=== PATIENT | female | born 1960 | race Caucasian/White ===

== ENCOUNTER → 2018-01-21 16:22 | Outpatient (CLI) | payer BC, SELFPAY ==
[2018-01-21 19:08] LABS: Vitamin D,25 Hydroxy 29.8 ng/mL (29.95-100.01)
== END ==
PROVIDERS: Family Provider Family Medicine; PCP Family Medicine; Visit Provider Family Medicine
DX: E55.9 Vitamin D deficiency, unspecified (principal)
CPT/HCPCS: 36415; 82306

== ENCOUNTER → 2019-03-18 11:07 | Outpatient (CLI) | payer BC, SELFPAY ==
[2015-02-23 14:24] VITALS: BMI 26.3
[2019-03-18 13:45] LABS: Vitamin D,25 Hydroxy 34.1 ng/mL (29.95-100.01)
== END ==
PROVIDERS: Family Provider Family Medicine; PCP Family Medicine; Referring Provider Family Medicine; Visit Provider Family Medicine
DX: E55.9 Vitamin D deficiency, unspecified (principal)
CPT/HCPCS: 36415; 82306

== ENCOUNTER → 2019-09-11 10:15 | Outpatient (CLI) | payer BC, SELFPAY ==
[2015-02-23 14:24] VITALS: BMI 26.3
--- NOTE | 2019-09-11 10:19 | RAD_ITS ---
STUDY: X-RAY - PELVIS AND RIGHT HIP REASON FOR EXAM: Female, 59 years old. Pain TECHNIQUE: 3 views of the pelvis and hip. COMPARISON: None. FINDINGS: There is a non-specific bowel gas pattern. Evidence of bilateral tubal ligation. Normal bilateral iliac wings, sacroiliac joints and visualized sacrum. Normal bilateral superior and inferior pubic rami. There are degenerative changes of the pubic symphysis with articular narrowing and sclerosis. Normal bilateral ischial tuberosities. Normal visualized femoral head. Normal acetabulum. There is mild articular joint space narrowing of the hip. RAD/Hip Min 2 Views (Portable) IMPRESSION: Mild degenerative changes of the hip joint. Electronically Signed: Lamont Bertrand, at 10:56 EDT , Service support ,
--- NOTE | 2019-09-11 10:20 | RAD_ITS ---
STUDY: X-RAY - RIGHT KNEE REASON FOR EXAM: Female, 59 years old. Pain TECHNIQUE: 4 view(s) of the knee. COMPARISON: None. FINDINGS: Normal visualized distal femur. Normal visualized proximal tibia and fibula. Normal proximal tibiofibular articulation. Normal medial femorotibial compartment. Normal lateral femorotibial compartment. Normal patellofemoral articulation. The soft tissue structures are unremarkable. RAD/Knee 4 or More Views IMPRESSION: Normal x-ray examination of the knee. Electronically Signed: Lamont Bertrand, at 10:53 EDT , Service support ,
== END ==
PROVIDERS: PCP Family Medicine; Referring Provider Family Medicine; Visit Provider Family Medicine
DX: M25.551 Pain in right hip (principal); M25.569 Pain in unspecified knee
CPT/HCPCS: 73502; 73564

== ENCOUNTER → 2021-02-09 08:29 | Outpatient (CLI) | payer BC, SELFPAY | PROVIDERS: PCP Family Medicine; Referring Provider Physician Assistant; Visit Provider Physician Assistant | DX: Z11.52 Encounter for screening for COVID-19 (principal) | CPT/HCPCS: 87635; U0005; U0003 ==

== ENCOUNTER 2022-04-17 15:57 | Outpatient (RCR) | payer BC, SELFPAY ==
--- NOTE | 2022-04-18 11:55 | HP.PTEVAL_ITS ---
Patient's Visit Information GIOVANNA BROOKS is a 62 year old F referred to Physical Therapy by Dr. Cely López MD with a diagnosis of R shoulder strain. Date of Evaluation: 04/17/22 Physical Therapist: Louis Salmon DPT - Visit Plan Frequency: 1x/Week Duration: 4 Weeks Plan: Start with DFM and DN to teres minor and infraspinatus. Add in ER strengthening to remodel her issue. Add in serratus anterior strengthening as well. I did talk to her about self pay DN as well. - Subjective Pt. is here today for her initial evaluation with diagnosis of R shoulder pain. Pt. reports having increased pain for ~1 month. She thinks that is started after lifting more with a new job, mostly lifting over head. She is now having pain near her scapulae, but also reports pain that does extend down into her R deltoid at times. She is able to sleep without issues. Pt. reports no pain at rest, but mostly with lifting over head and reaching out in front/side of her. Pt. denies N/T in either UE. Pt. reports no neck pain. NO xrays or other imaging at this point in time. She had not tried any exercises at this point in time. She reports being very active with her life style. Pt. is sleeping okay without issues. Pt. is hopeful to reduce symptoms in order to get back to all work activities and recreational activities without limitations. - Pain R shoulder Pain Intensity (Out of 10): 2 Pain Intensity Range: 1, 5 R scapulae Pain Intensity (Out of 10): 2 Pain Intensity Range: 1, 5 - Objective POSTURE: Pt. has fairly normal posture in sitting and standing. Pt. has normal shoulder heights. Slight FH posture. [place] increase in R scapular winging compared to L side. PALPATION: pt. has marked tenderness at infraspinatus and teres minor muscle bellies. No pain along medial boarder of scapula, no pain at subacromial space or biceps tendon. NEURO: normal throughout BUEs. ROM: L shoulder: full ROM without increase in symptoms. R shoulder: flexion 165deg mild increase NW, abd 170deg mild increase NW, functional ER C6 NE, functional IR T10 NE. MMT: 5/5 throughout B shoulders without increase in symptoms. No pain with RTC testing. - Special Tests R Shoulder Lift Off Test - Subscapular Tear: Negative R Shoulder Drop Sign - IS Test: Negative R Shoulder Empty Can - SS: Negative R Shoulder Belly Press - SupScap: Negative R Shoulder Neer - Impingement: Negative R Shoulder [place] Steve - Impingement: Negative R Shoulder Biceps Load Test - Labrum: Negative R Shoulder Yeargasons - SLAP: Negative - Balance/Special Test Scores Quick DASH Score: 29.5450 - Goals Goal 1:: LTG: Pt. to be I with HEP. Goal Time Frame: 4-6 Weeks Goal 2:: STG: Pt. to have full ROM of R shoulder without increase in symptoms. Goal Time Frame: 2-4 Weeks Goal 3:: LTG: Pt. to complete all work related activities without increase in symptoms of R shoulder. Goal Time Frame: 4-6 Weeks Goal 4:: STG: Pt. to have no tenderness to firm palpation of R shoulder external rotators. Goal Time Frame: 2-4 Weeks - Rehabilitation Potential Physical Therapy Diagnosis: Pt. has signs and symptoms consistent with R shoulder strain. Pt. has pain at her teres minor and infraspinatus region. She has some mild R scapular winging as well. It appears to be a strain of her external rotators rather than a tear. Pt. would benefit from PT to address her pain with over head movement and with what appears to be a teres minor/infraspinatus muscle tendinitis. Rehabilitation Potential: Excellent - Anticipated Interventions Patient/Client Instruction: Educate patient on: Condition, Plan of Care, Risk Factors For the Purpose of:: To foster healthy habits, To improve decision making, To facilitate caregiver knowledge, To improve self management, To prevent re- injury, To improve ability to perform tasks related to life management Therapeutic Exercise to Include: Strength training, Active ROM, Scapular Strength/Stabilization For the Purpose of:: To decrease pain, To increase ROM, To improve nutrient delivery to tissue, To increase oxygenation perfusion, To improve muscle performance and motor function Manual Therapy Techniques to Include: Mobilization, Functional dry needling For the Purpose of:: To decrease pain, To increase ROM, To improve nutrient delivery to tissue, To increase oxygenation perfusion, To improve muscle performance and motor function Thank you for the opportunity to evaluate your patient. For Medicare and Medicare HMO plans, please review the plan of care and approve it. It will need to be FAXED BACK to us at [phone] for Medicare purposes. For Medicare only, by signing this I certify the plan of care. Please let me know if there are questions or concerns regarding this plan of care. Physician Signature: ____Date:
== END 2022-04-17 19:00 | disposition home or self-care (01) ==
LOC: PT 15:57
PROVIDERS: PCP Family Medicine; Referring Provider Family Medicine; Visit Provider Family Medicine
DX: S46.911D Strain of unspecified muscle, fascia and tendon at shoulder and upper arm level, right arm, subsequent encounter (principal)
CPT/HCPCS: 97110; 97161

== ENCOUNTER → 2024-07-24 | Outpatient (CLI) | payer OTHER, SELFPAY ==
[2024-07-24 18:28] LABS: Anion Gap 14 (5-15); BUN 13 mg/dL (4-19); BUN/Creat Ratio 17.5 RATIO (10-20); Calcium,Total 9.4 mg/dL (7.6-11.0); Chloride 104 mmol/L (98-108); Cholesterol 225 mg/dL (<=200); Creatinine, Serum 0.72 mg/dL (0.70-1.20); EST Glomerular Filtration Rate 94 (>60); Glucose 88 mg/dL (70-99); High Density Lipoprotein 103 mg/dL; Low Density Lipoprotein Calc. 95 mg/dL; Potassium 3.8 mmol/L (3.3-5.1); Sodium Level 139 mmol/L (133-145); Triglycerides 136 mg/dL; Very Low Density Lipoprotein 27 mg/dL (5-40); cholesterol:hdl ratio screen 2.18
[2024-07-24 18:39] LABS: Vitamin D,25 Hydroxy 27.9 ng/mL (30-100)
== END | disposition home or self-care (01) ==
LOC: MFPLAB 16:41
PROVIDERS: PCP Family Medicine; Referring Provider Family Medicine; Visit Provider Family Medicine
DX: E55.9 Vitamin D deficiency, unspecified (principal); R03.0 Elevated blood-pressure reading, without diagnosis of hypertension
CPT/HCPCS: 36415; 80048; 80061; 82306

== ENCOUNTER → 2025-02-22 | Outpatient (CLI) | payer OTHER, SELFPAY ==
--- OUTSIDE RECORDS SUMMARY | 2025-02-22 15:40 | XMS RPT_ITS | CCD ---
Author Organization [facility] Care Team Providers Care 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 Name Role Phone IMCA Unavailable Unavailable Rene, Cely Unavailable Unavailable Cely López Primary Care Provider Cely López Primary Care Provider Cely López Referring Unavailable Cely López Attending Unavailable Cely López Primary Care Unavailable Dr. Cely López MD Primary Care Provider Rene BOO, Dr. Cely Alonso Attending Provider Dr. Cely López MD Referring Provider TAYLOR AVILES Primary Care Unavailable REBA GARCIA Attending Unavailable DOROTHY MUHAMMAD Referring Unavailable DOROTHY MUHAMMAD Attending Unavailable CELY LÓPEZ Primary Care Unavailable CELY LÓPEZ Primary Care Unavailable ROBERT HAYS Attending Unavailable DOROTHY MUHAMMAD Referring Unavailable CELY LÓPEZ Primary Care Unavailable Medications Current Medications Medication Drug Class(es) Dates Sig (Normalized) Sig (Original) amoxicillin 875 mg / clavulanate 125 mg oral tablet (2 sources) Penicillin-class Antibacterial Start: 10-13-2024 End: 10-20-2024 take 1 tablet by mouth twice daily amoxicillin-clav ulanate potassium (AUGMENTIN) 875-125 mg per tablet Take 1 tablet by mouth two times a day for 7 days. 14 tablet 10/13/2024 10/20/2024 Active Start: 09-28-2023 End: 10-05-2023 take 1 tablet by mouth twice daily amoxicillin-clavulanate potassium (AUGMENTIN) 875-125 mg per tablet Indications: Sinobronchitis Take 1 tablet by mouth two times a day for 7 days. 14 tablet 0 09/28/2023 10/05/2023 Active BEE POLLEN ORAL (12 sources) take 2 capsules by m outh once daily BEE POLLEN ORAL Take 2 capsules by mouth once daily. Active BEE POLLEN ORAL Take by mouth. 0 Active Comment on above: Take by mouth. calcium carbonate 1500 mg / cholecalciferol 0.01 mg oral tablet (2 sources) Vitamin D Start: 4 Calcium Carbonate-Vitamin D3 (Calcium 600 + D(3)) 1 EACH tablet Active 1 {tbl} PO DAILY May 14, 2013 1:00am cholecalciferol 0.025 mg oral capsule (9 sources) Vitamin D End: take 1 capsule by mouth once daily Cholecalciferol, Vitamin D3, (VITAMIN D) 1,000 unit cap Take 1,000 Units by mouth once daily. 01/02/2024 Discontinued Comment on above: Take 1,000 Units by mouth once daily. [place]-3 Fatty Acids-Fish Oil (2 sources) Start: 4 [place]-3 Fatty Acids-Fish Oil 1 EACH capsule Active 1 NMA PO DAILY May 14, 2013 1:00am Start: 05-14-2013 [place]-3 Fatty Acids-Fish Oil Active 1 EACH PO DAILY May 14, 2013 1:00am ergocalciferol, vitamin D2, (VITAMIN D2 PO) (1 source) ergocalciferol, vitamin D2, (VITAMIN D2 PO) Take by mouth. Active LORazepam 0.5 mg oral tablet (6 sources) Benzodiazepine Start: 023 LORazepam (ATIVAN) 0.5 mg TAKE 1 (ONE) TABLET DAILY IF NEEDED FOR ANXIETY 08/15/2022 Active Comment on above: TAKE 1 (ONE) TABLET DAILY IF NEEDED FOR ANXIETY losartan potassium 25 mg oral tablet (2 sources) Angiotensin 2 Receptor Annabel Start: 025 End: 025 take 1 tablet by mouth once daily losartan (COZAAR) 25 mg tablet Take 1 tablet by mouth once daily. 07/24/2024 01/01/2025 Discontinued Multivitamin With Folic Acid (Thera) 1 TABLET tablet (2 sources) Start: 014 take 1 tablet by mouth once daily Multivitamin With Folic Acid (Thera) 1 TABLET tablet Active 1 {tbl} PO DAILY May 14, 2013 1:00am Start: 05-14-2013 take 1 tablet by keshia th once daily Multivitamin With Folic Acid (Thera) 1 TABLET tablet Active 1 TABLET PO DAILY May 14, 2013 1:00am predniSONE 20 mg oral tablet (1 source) Start: 09-28-2023 End: 10-03-2023 take 2 tablets by mouth once daily predniSONE (DELTASONE) 20 mg tablet Indications: Sinobronchitis Take 2 tablets by mouth once daily for 5 days. 10 tablet 0 09/28/2023 10/03/2023 Active ACUCGLH-KUGU-SFCES-ORE G-CAPRYL ORAL (6 sources) take 1 capsule by mouth once daily JHFCOCU-BTNS-PQGNT-OREG-C [place]OU[place] ORAL Take 1 capsule by mouth once daily. Active CNUQUYM-CWLR-FEF XT-POWQ-DWNYWE ORAL Take by mouth. 0 Active Comment on above: Take by mouth. Completed/Discontinued Medications Medication Drug Class(es) Dates Sig (Normalized) Sig (Original) hydrOXYzine pamoate 25 mg oral capsule (7 sources) Antihistamine Start: 06-05-2021 End: 12-05-2022 take 1 capsule by mouth every eight hours as needed hydrOXYzine pamoate (VISTARIL) 25 mg capsule Take 1 capsule by mouth three times daily as needed for anxiety (or insomnia). 30 capsule 1 06/05/2021 12/05/2022 Discontinued (Other) Comment on above: Take 1 capsule by mo uth three times daily as needed for anxiety (or insomnia). Problems Active Problems Problem Classification Problem Date Documented Date Episodic/Chronic Bacterial infection; unspecified site (1 source) Other specified bacterial agents as the cause of diseases classified elsewhere; Translations: [Bacterial sinusitis] Onset: 01-21-2025 Episodic Nonmalignant breast conditions (12 sources) Fibrocystic changes of bilateral breasts; Translations: [Diffuse cystic mastopathy of right breast] Onset: 12-21-2016 12-21-2016 Chronic Nonmalignant breast conditions (20 sources) Pain of breast; Translations: [Mastodynia] Onset: 12-21-2016 12-21-2016 Episodic Nutritional deficiencies (1 source) Vitamin D deficiency, unspecified; Translations: [Vitamin D deficiency, unspecified] Onset: 07-30-2024 Chronic Other screening for suspected conditions (not mental disorders or infectious disease) (18 sources) Patient encounter status; Translations: [Encounter for screening mammogram for malignant neoplasm of breast] Onset: 12-21-2016 Episodic Other upper respiratory infections (3 sources) Chronic sinusitis; Translations: [Chronic sinusitis, unspecified] Onset: 01-21-2025 09-28-2023 Chronic Residual codes; unclassified (3 sources) Postmenopausal state; Translations: [Asymptomatic menopausal state] 01-02-2024 Episodic Residual codes; unclassified (1 source) Asymptomatic menopausal state; Translations: [Asymptomatic postmenopausal status] Onset: 01-01-2025 Episodic Substance-related disorders (12 sources) Tobacco user; Translations: [Nicotine dependence, unspecified, uncomplicated] 03-22-2010 Chronic Unclassified (3 sources) Patient encounter status 01-01-2025 Unclassified (1 source) Dense breasts; Translations: [Dense breasts] Onset: 12-21-2016 Unclassified (1 source) Dense breast tissue; Translations: [Dense breast tissue] Onset: 06-01-2024 Past or Other Problems Problem Classification Problem Date Documented Da te Episodic/Chronic Residual codes; unclassified (12 sources) Family history of breast cancer; Translations: [Family history of malignant neoplasm of breast] Onset: 12-21-2016 12-21-2016 Episodic Unclassified (1 source) Breast finding 01-01-2025 Results Test Name Value Interpretation Reference Range Facility [facility] 01-21-2025 CNOV Office Visit (WOUCA) HEATHER BROOKS Gavin ([id number]) 1960 F Date Time Provider Department 01/21/25 9:45 AM REBA GARCIA During your visit today, we recorded the following information about you: Temperature Pulse Respiration Blood pressure 97.3 degrees 88/minute 22/minute 133/82 Weight 69 kg Reba Garcia APRN.CNP 01/21/2025 10:11 AM Signed SUBJECTIVE: Heather Brooks is a 65 year old female. Who presents today with concerns for a sinus infection. She has had sinus pressure cough headache green mucus for the last 10 days. She has not had a fever. She has had sinus infections in the past. She has not been exposed to anyone who is sick. She is leaving in a couple of days to fly to [facility] for vacation PAST MEDICAL HISTORY Diagnosis Date Anxiety, generalized Per patient Dense breast Tobacco use disorder Age 34 FAMILY HISTORY Problem Relation Age of Onset Breast Cancer Mother 70 and 85 Stroke Mother Emphysema Father Colon Cancer Other none Diabetes Other none Coronary Artery Disease Other none SOCIAL HISTORY[1] ALLERGIES No Known Allergies Current Outpatient Medications Medication Sig Dispense Refill ergocalciferol, vitamin D2, (VITAMIN D2 PO) Take by mouth. LORazepam (ATIVAN) 0.5 mg TAKE 1 (ONE) TABLET DAILY IF NEEDED FOR ANXIETY JKIGCOU-UATE-YRVNI-O REG-CAPRYL ORAL Take 1 capsule by mouth once daily. BEE POLLEN ORAL Take 2 capsules by mouth once daily. No current facility-administere d medications for this visit. OBJECTIVE: BP 133/82 Pulse 88 Temp 36.3 ?C (97.3 ?F) Resp 22 Wt 69 kg (152 lb 1.9 oz) LMP 06/22/2015 (Within Days) SpO2 99% BMI 26.11 kg/m? ROS all other systems reviewed and are negative Physical Exam Constitutional: Well developed, well nourished, NAD, AANDO X3 ENT: Head is atraumatic, airway patent, mucosal membranes moist pink Cardiac: Heart tone normal rate and rhythm Respiratory: Respirations even and unlabored, Lung sounds clear : no CVA tenderness MS: no swelling, or deformity in upper or lower extremities, no midline tenderness in cervical, thoracic or lumbar spine. Neuro: strength sensation and coordination intact. CN II-XII grossly intact, Skin: warm and dry with out rash, lesion or ecchymosis on exposed skin Psych: alert appropriate, speech clear MDM It was a pleasure to take care of Heather Brooks today. Patient's symptoms have lingered for the last 10 days I will treat her today with an antibiotic. She has had Augmentin in the past when she has had her sinus infections and this has worked well for her. She may take Motrin and Tylenol for any discomfort. She currently uses Flonase and may continue this medication. She has also taken Sudafed and she may continue with this medication as well. She will increase her fluids for hydration. Patient has verbalized understanding of plan of care and is agreeable Patient will follow up with family physician. They may return to the Urgent Care or go to the ER for worsening symptoms or concerns. Patient verbalized understanding of plan of care and is in agreement. ASSESSMENT/PLAN: 1. Bacterial sinusitis - ICD9: 473.9, 041.9, ICD10: J32.9, B96.89 - AMOXICILLIN 875 MG-POTASSIUM CLAVULANATE 125 MG TABLET Reba Garcia APRN.SUPERVISOR TYPE DISK QUALITY CONTROL History and Record Review Systemic symptoms present included: Differential Diagnoses - Sinusitis is more likely for the following reason(s): suggested by HANDP - Pneumonia is less likely for the following reason(s): HANDP not suggestive Disposition The patient was discharged. OTC Medications were advised: [1] Social History Tobacco Use Smoking status: Every Day Current packs/day: 0.00 Average packs/day: 1 pack/day for 16.0 years (16.0 ttl pk-yrs) Types: Cigarettes Start date: 03/15/1996 Last attempt to quit: 03/15/2012 Years since quittin.8 Smokeless tobacco: Never Tobacco comments: Currently trying to quit, using chantix Vaping Use Vaping status: Never Used Substance Use Topics Alcohol use: Yes Alcohol/week: 15.0 - 20.0 standard drinks of alcohol Types: 15 - 20 Glasses of Wine (5oz) per week Drug use: Not Currently Types: Marijuana Allergies As of Date: 01/21/2025 (No Known Allergies) Date Reviewed: 01/21/2025 Reviewed by: Luh Pagan LPN - Fully Assessed Reason for Visit: Sinus Problem [99] Cmt: Sinus pressure and pain in eyes face and head, ear starting, headache, chest pressure and cough, some mucous coming up x 10 days Primary Visit Diagnosis:Bacterial sinusitis [J32.9, B96.89] Order(s):amoxicillin -clavulanate potassium (AUGMENTIN) 875-125 mg per tabletTake 1 tablet by mouth two times a day for 5 days.Disp: 10 tabletRfl: 0 Prescriptions as of 01/21/2025 - amoxicillin-clavulan ate potassium (AUGMENTIN) 875-125 mg per tablet Take 1 tablet by mouth two times a day for 5 days. (more content not included)... Normal [facility] CNOVon 01-01-2025 CNOV Office Visit (OBGYWM) HEATHER BROOKS ([id number]) 1960 F Date Time Provider Department 01/01/25 8:15 AM DOROTHY MUHAMMAD During your visit today, we recorded the following information about you: Blood pressure Weight Height 112/70 69.4 kg 1.626 m Dorothy Muhammad APRN.CNP 01/01/2025 8:44 AM Signed Registry Nurse offered: Patient declines. Romero is a 64 year old who presents for an annual gynecologic exam without complaints. Postmenopausal: Yes HRT use: No. Still get period: No LMP: 06/22/2015 Menopause symptoms: None Contraception: Post Menopausal and Tubal Ligation Contraception frequency: Always HPV vaccine: No Last pap smear: 06/05/2021 normal, HPV negative History of abnormal pap: No Bothersome pelvic pain: No Last mammogram: 05/2024 benign History of abnormal mammogram: Yes , hx of breast biopsy OB History Gravida3 Para3 Term3 Preterm0 AB0 Living3 SAB0 IAB0 Ectopic0 Multiple0 Live Births0 Comment: Menarche: 15; Age at 1st : 18; Post menopausal Core Sucker History LMP: 06/22/2015 (Within Days), Postmenopausal Age at Menarche: 16 Age at First : Age at Menopause: Core Sucker History Comments: Sexual Activity: Not Currently; Male Contraception: Tubal Ligation PAST MEDICAL HISTORY Diagnosis Date Anxiety, generalized Per patient Tobacco use disorder Age 34 PAST SURGICAL HISTORY Procedure Laterality Date APPENDECTOMY 1972 ARTHROSCOPY KNEE DIAGNOSTIC W/WO SYNOVIAL BX SPX 1994 Arthroscopy, knee Rt - torn meniscus BX BREAST PERC NEED W/GUID 04/20/13 U/S needle core right breast 9:30 plus 5 ENDOMETRIAL BX W/WO ENDOCERVIX BX W/O DILAT SPX 06/28/2010 Thickened Endometrium EXC BREAST LES PREOP PLMT RAD MARKER OPEN 1 LES 05-19-13 right FNA WITH IMAGING 05/18/13 U/S FNA 1 Oclock right breast cyst FNA WITH IMAGING Right 10/31/15 U/S FNA UOQ right x 3 FNA WITH IMAGING Right 04/27/2016 U/S FNA right breast cysts x 3 LIG/TRNSXJ FLP TUBE ABDL/VAG APPR UNI/BI 1987 Tubal ligation TONSILLECTOMY PRIMARY/SECONDARY Tonsillectomy FAMILY HISTORY Problem Relation Age of Onset Breast Cancer Mother 70 and 85 Stroke Mother Emphysema Father Colon Cancer Other none Diabetes Other none Coronary Artery Disease Other none SOCIAL HISTORY Social History Tobacco Use Smoking status: Every Day Current packs/day: 0.00 Average packs/day: 1 pack/day for 16.0 years (16.0 ttl pk-yrs) Types: Cigarettes Start date: 03/15/1996 Last attempt to quit: 03/15/2012 Years since quittin.8 Smokeless tobacco: Never Tobacco comments: Currently trying to quit, using sarvaMAILtix Vaping Use Vaping status: Never Used Substance Use Topics Alcohol use: Yes Alcohol/week: 15.0 - 20.0 standard drinks of alcohol Types: 15 - 20 Glasses of Wine (5oz) per week Drug use: Not Currently Types: Marijuana REVIEW OF SYSTEMS Abdomen: No abdominal pain, nausea, vomiting, diarrhea, or constipation. No bloating, early satiety, indigestion, or increased flatulence. Bladder: No dysuria, gross hematuria, urinary frequency, urinary urgency, or incontinence Breast: No breast lumps, nipple d/c, overlying skin changes, redness or skin retraction Allergies and current medication updated:Yes SENSITIVE EXAM: The sensitive examination was discussed with the Patient or Patient's Authorized Toe Stripper. As applicable, any other physician, advance practice provider, medical student, or other health professional student that will be observing or involved in the sensitive examination for educational or training purposes was discussed with the Patient or Authorized Toe Stripper. The Patient or Authorized Toe Stripper has agreed to proceed with the sensitive examination. (Sensitive examination includes inspection and/or palpation of the breasts, pelvis, prostate and anorectal regions). EXAM: BP 112/70 Ht 5' 4" (1.63m) Wt 153 lb (69.4kg) LMP 06/22/2015 BMI 26.25 kg/(m2). GENERAL: pleasant, female in no apparent distress HEENT: Normocephalic, atraumatic, mucus membranes moist, and no lesions NECK: Supple, full range of motion, no adenopathy, and thyroid normal DERMATOLOGY: Normal, without lesions, non-icteric, and non-hirsute BREAST: soft, non-tender, symmetric, no dominant mass, normal nipple-areolar complex, no lymphadenopathy, and no nipple discharge CHEST: Normal inspiratory effort ABDOMEN: soft, non-tender, and no masses PELVIC: external genitalia atrophic, normal Bartholin's glands, urethra, [place]'s glands, no vulvar lesions, no cervical lesions, good vaginal support, physiologic discharge present, normal appearing perineal body and perianal region BIMANUAL: uterus normal size, shape and consistency, no adnexal masses, and non-tender RECTOVAGINAL: deferred. NEURO: alert and oriented x3,exam grossly non-focal EXTREMITIES: normal ASSE (more content not included)... Normal [facility] CNOVon 10-13-2024 CNOV Office Visit (WSTR) HEATHER BROOKS ([id number]) 1960 F Date Time Provider Department 10/13/24 3:30 PM ROBERT HAYS [facility] During your visit today, we recorded the following information about you: Temperature Pulse Respiration Blood pressure 97.4 degrees 76/minute 18/minute 128/76 Weight 70.5 kg Robert Hays PA 10/13/2024 3:43 PM Signed [facility] Subjective Heather Brooks is a 64 year old female. Patient presents with: Sinus Problem: Sinus pain and pressure, and ear pressure x 5 days HPI Sinus Infection: - Recurrent sinus infections, occurring 2-3 times per year. - Symptoms began approximately 6 days ago, following air travel and yard work. - Reports facial pressure, particularly around the eyes, described as "feeling like they're on fire." - Associated with rhinorrhea, initially presenting as congestion; has used two boxes of tissues. - Otalgia noted, with discomfort exacerbated by nose blowing. - Intermittent nocturnal cough attributed to postnasal drip. - Denies cephalgia. - Febrile episode on Saturday, but no subsequent fevers. - No known exposure to sick contacts. - Recent use of NyQuil for the past two nights and generic DayQuil today, with minimal relief. - Previous effective treatment with Augmentin; Z-Nicola noted to be ineffective in past episodes. Review of Systems Constitutional: (-) fever Head: (+) facial pressure, (-) headache Eyes: (+) ocular burning Ears/Nose/Mouth/Thro at: (+) ear pain, (+) nasal congestion, (+) rhinorrhea Respiratory: (+) cough Objective BP 128/76 Pulse 76 Temp 36.3 ?C (97.4 ?F) (Tympanic) Resp 18 Wt 70.5 kg (155 lb 6.8 oz) LMP 06/22/2015 (Within Days) SpO2 98% BMI 27.44 kg/m? Physical Exam Vitals and nursing note reviewed. Constitutional: General: She is not in acute distress. Appearance: Normal appearance. She is not toxic-appearing. HENT: Right Ear: Tympanic membrane and ear canal normal. Left Ear: Tympanic membrane and ear canal normal. Nose: Congestion present. Right Sinus: Maxillary sinus tenderness present. Left Sinus: Maxillary sinus tenderness present. Mouth/Throat: Mouth: Mucous membranes are moist. Pharynx: No oropharyngeal exudate or posterior oropharyngeal erythema. Eyes: Conjunctiva/sclera: Conjunctivae normal. Cardiovascular: Rate and Rhythm: Normal rate and regular rhythm. Pulmonary: Effort: Pulmonary effort is normal. Breath sounds: Normal breath sounds. Neurological: Mental Status: She is alert. {1. Bacterial sinusitis (J32.9) - Symptoms include facial pressure, otalgia, and nasal congestion with significant rhinorrhea for 6 days; no headaches reported. - Physical exam reveals fluid behind the tympanic membranes, no signs of infection. - Initiated Augmentin BID for 7 days; prescription sent to [facility] pharmacy. - Advised continuation of NyQuil and Mucinex DM for symptomatic relief of cough. - Recommended Flonase nasal spray to alleviate nasal congestion. Recording using [employer]ala[employer] software for draft documentation of the visit was discussed with the patient/authorized passenger relations representative; all questions welcomed and answered. Patient/authorized passenger relations representative agreed to proceed History and Record Review External record(s) reviewed: prior outpatient record. Systemic symptoms present included: fever Differential Diagnoses - Sinusitis is more likely for the following reason(s): suggested by HANDP - Pneumonia is less likely for the following reason(s): HANDP not suggestive - Otitis media is less likely for the following reason(s): HANDP not suggestive Disposition The patient was discharged. OTC Medications were advised: Mucinex, Flonase Procedures Allergies As of Date: 10/13/2024 (No Known Allergies) Date Reviewed: 10/13/2024 Reviewed by: Jennifer Roldan LPN - Fully Assessed Reason for Visit: Sinus Problem [99] Cmt: Sinus pain and pressure, and ear pressure x 5 days Primary Visit Diagnosis:Bacterial sinusitis [J32.9, B96.89] Order(s):amoxicillin -clavulanate potassium (AUGMENTIN) 875-125 mg per tabletTake 1 tablet by mouth two times a day for 7 days.Disp: 14 tabletRfl: 0 Prescriptions as of 10/13/2024 - losartan (COZAAR) 25 mg tablet Take 1 tablet by mouth once daily. - amoxicillin-clavulan ate potassium (AUGMENTIN) 875-125 mg per tablet Take 1 tablet by mouth two times a day for 7 days. - LORazepam (ATIVAN) 0.5 mg TAKE 1 (ONE) TABLET DAILY IF NEEDED FOR ANXIETY - ZLZTOIO-VLDQ-BZCBA-O REG-CAPRYL ORAL Take 1 capsule by mouth once daily. - BEE POLLEN ORAL Take 2 capsules by mouth once daily. Problem List As Of Date 10/13/2024 Noted Resolved Tobacco use disorder [F17.200] Routine gynecological examination [Z01.419] 09/10/2008 Class: Chronic Bilateral fibrocystic breast changes [N60.11, N*12/21/2016 Mastodynia [N64.4] 12/22/19 (more content not included)... Normal [facility] Anion gap in Serum or Plasma Ordered By: Cely López on 07-24-2024 Anion gap [Moles/Vol] 14 mmol/L 5-15 [facility] BUN/creatinine ratioOrdered By: Cely López on 07-24-2024 Urea nitrogen/Creatinine [Mass ratio] 17.5 mg/mg - [facility] Basic Metabolic Profile (BMP )on 07-24-2024 BUN/CRE 17.5 RATIO Normal - [facility] Comment on above: Performed By: #### L 500.4100, L500.2500, L506.1001 #### [facility] Laboratory [address] [place], [address] Calcium [Mass/Vol] 9.4 mg/dL Normal 7.6-11.[address] [facility] Comment on above: Performed By: #### L 500.4100, L500.2500, L506.1001 #### [facility] [address] [place], [address] Chloride [Moles/Vol] 104 mmol/L Normal 98-108 [facility] Comment on above: Performed By: #### L 500.4100, L500.2500, L506.1001 #### [facility] [address] [place], [address] CO2 [Moles/Vol] 21.0 mmol/L Normal 21.0-32.0 [facility] Comment on above: Performed By: #### L 500.4100, L500.2500, L506.1001 #### [facility] [address] [place], [address] Creatinine [Mass/Vol] 0.72 mg/dL Normal 0.70-1.20 [facility] Comment on above: Performed By: #### L 500.4100, L500.2500, L506.1001 #### [facility] [address] [place], [address] GAP 14 Normal -15 [facility] Comment on above: Performed By: #### L 500.4100, L500.2500, L506.1001 #### [facility] [address] [place], [address] GFR/1.73 sq M.predicted among non-blacks MDRD (S/P/Bld) [Vol rate/Area] 94 mL/min/{1.73_m2} Normal >60 [facility] Comment on above: Result Comment: mL/m in/1.73m2 CKD-EPI Creatinine Equation (2020) Performed By: #### L 500.4100, L500.2500, L506.1001 #### [facility] [address] [place], [address] Glucose [Mass/Vol] 88 mg/dL Normal 70-[address] [facility] Comment on above: Performed By: #### L 500.4100, L500.2500, L506.1001 #### [facility] [address] [place], [address] Potassium [Moles/Vol] 3.8 mmol/L Normal 3.3-5.1 [facility] Comment on above: Performed By: #### L 500.4100, L500.2500, L506.1001 #### [facility] [address] [place], [address] Sodium [Moles/Vol] 139 mmol/L Normal 133-[address] [facility] Comment on above: Performed By: #### L 500.4100, L500.2500, L506.1001 #### [facility] [address] [place], [address] Urea nitrogen [Mass/Vol] 13 mg/dL Normal 4-19 [facility] Comment on above: Performed By: #### L 500.4100, L500.2500, L506.1001 #### [facility] [address] [place], [address] Calculated very low density lipoprotein (VLDL) cholesterol measurementOrdered By: Cely López on 07-24-2024 VLDL Cholesterol 27 mg/dL 5-40 [facility] Carbon dioxide, total [Moles /volume] in Central venous bloodOrdered By: Cely López on 07-24-2024 CO2 [Moles/Vol] 21.0 mmol/L 21.0-32.0 [facility] Chloride assayOrdered By: Jayson López on 07-24-2024 Chloride [Moles/Vol] 104 mmol/L 98-108 [facility] GFR/1.73 sq M.predicted manuel g non-blacks MDRD (S/P/Bld) [Vol rate/Area]Ordered By: Cely López on 07-24-2024 Estimated GFR (MDRD) Non-Af Amer 94 >60 [facility] Comment on above: mL/min/1.73m2 CKD-EP I Creatinine Equation (2020) L506.1001on 07-24-2024 Vitamin D 25-OH 27.9 ng/mL Low 30-100 [facility] Comment on above: Result Comment: Merlyn min D Status Deficiency: <20 ng/mL (50nmol/L) Insufficiency: 20-30 ng/mL (50-75 nmol/L) Sufficiency: 30-100 ng/mL (75-250 nmol/L) Toxicity: >100 ng/mL (>250 nmol/L) Performed By: #### L 500.4100, L500.2500, L506.1001 #### [facility] [address] [place], [address] LDL calc ser/plasOrdered By: Cely López on 07-24-2024 LDL Cholesterol, Calculated 95 mg/dL [facility] Comment on above: Ebsfujxrfi=777-929 m g/dL & Higher Oyci=139 mg/dL or greater Lipid Profileon 07-24-2024 CHOL:HDL 2.18 Normal [facility] Comment on above: Performed By: #### L 500.4100, L500.2500, L506.1001 #### [facility] [address] [place], [address] Cholesterol [Mass/Vol] 225 mg/dL High <=200 [facility] Comment on above: Result Comment: Chol esterol level, Desirable <200 mg/dL Borderline high cholesterol 200-239 mg/dL High cholesterol >=240 mg/dL Recommendations of the NCEP Adult Treatment Panel for the following risk-cutoff thresholds for the [place] population. Performed By: #### L 500.4100, L500.2500, L506.1001 #### [facility] [address] [place], [address] Cholesterol in HDL [Mass/Vol] 103 mg/dL Normal [facility] Comment on above: Result Comment: Johanny onal Cholesterol Education Program (NCEP) guidelines: <40 mg/dL: Low HDL-cholesterol (major risk factor for CHD) >= 60 mg/dL: High HDL-cholesterol (negative risk factor for CHD) HDL-cholesterol is affected by a number of factors, e.g. smoking, exercise, hormones, sex and age. Performed By: #### L 500.4100, L500.2500, L506.1001 #### [facility] [address] [place], [address] Cholesterol in LDL [Mass/Vol] 95 mg/dL Normal [facility] Comment on above: Result Comment: Bord xmjmxr=453-289 mg/dL Higher Xhlv=760 mg/dL or greater Performed By: #### L 500.4100, L500.2500, L506.1001 #### [facility] [address] [place], [address] Cholesterol in VLDL [Mass/Vol] 27 mg/dL Normal 5-40 [facility] Comment on above: Performed By: #### L 500.4100, L500.2500, L506.1001 #### [facility] [address] [place], [address] Triglyceride [Mass/Vol] 136 mg/dL Normal [facility] Comment on above: Result Comment: The drugs N-Acetylcysteine and Metamizole may falsely depress this assay. Normal range: <150 mg/dL Borderline High: 150-199 mg/dL High: 200-499 mg/dL Very High: >500 mg/dL Performed By: #### L 500.4100, L500.2500, L506.1001 #### [facility] [address] [place], [address] Potassium (Unsp spec) [Mass/ Vol]Ordered By: Cely López on 07-24-2024 Potassium [Moles/Vol] 3.8 mmol/L 3.3-5.1 [facility] Screening total cholesterol/ high density lipoprotein (HDL) cholesterol ratioOrdered By: Cely López on 07-24-2024 Cholesterol.total/Tammy sterol in HDL [Mass ratio] 2.18 {ratio} [facility] Serum creatinine measurement (mass/volume)Ordered By: Cely López on 07-24-2024 Creatinine [Mass/Vol] 0.72 mg/dL 0.70-1.20 [facility] Serum glucose measurement (m ass/volume)Ordered By: Cely López on 07-24-2024 Glucose [Mass/Vol] 88 mg/dL 70-[address] [facility] Serum or plasma calcium michael urement (mass/volume)Ordered By: Cely López on 07-24-2024 Calcium [Mass/Vol] 9.4 mg/dL 7.6-11.[address] [facility] Serum or plasma cholesterol in HDL measurement (mass/volume)Ordered By: Cely López on 07-24-2024 Cholesterol in HDL [Mass/Vol] 103 mg/dL >40 [facility] Comment on above: National Cholesterol Education Program (NCEP) guidelines:<40 mg/dL: Low HDL-cholesterol (major risk factor for CHD)>= 60 mg/dL: High HDL-cholesterol (negative risk factor for CHD)HDL-cholesterol is affected by a number of factors, e.g. smoking, exercise, hormones, sex and age. Serum or plasma cholesterol measurement (mass/volume)Ordered By: Cely López on 07-24-2024 Cholesterol [Mass/Vol] 225 mg/dL High <201 [facility] Comment on above: Cholesterol level, D esirable <200 mg/dLBorderline high cholesterol 200-239 mg/dLHigh cholesterol >=240 mg/dLRecommendations of the NCEP Adult Treatment Panel for the following risk-cutoff thresholds for the [place] population. Serum or plasma urea nitroge n measurement (mass/volume)Ordered By: Cely López on 07-24-2024 Urea nitrogen [Mass/Vol] 13 mg/dL 4-19 [facility] Sodium levelOrdered By: Cely López on 07-24-2024 Sodium [Moles/Vol] 139 mmol/L 133-[address] [facility] Triglycerides measurementOrd ered By: Cely López on 07-24-2024 Triglyceride [Mass/Vol] 136 mg/dL <199 [facility] Comment on above: The drugs N-Acetylcy steine and Metamizole may falsely depress this assay. Normal range: <150 mg/dLBorderline High: 150-199 mg/dLHigh: 200-499 mg/dLVery High: >500 mg/dL Vitamin D, 25-hydroxyOrdered By: Cely López on 07-24-2024 Vitamin D 25-Hydroxy 27.9 ng/mL Low 30-100 [facility] Comment on above: Vitamin D StatusDefi ciency: <20 ng/mL (50nmol/L)Insufficiency: 20-30 ng/mL (50-75 nmol/L)Sufficiency: 30-100 ng/mL (75-250 nmol/L)Toxicity: >100 ng/mL (>250 nmol/L) DBT Breast - bilateral stephaniee taemlajuanpablo 06-01-2024 IMPRESSION: There is no mammographic evidence of malignancy. Routine screening mammogram is recommended. Annual mammogram will be due in 1 year. BI-RADS Category 2: Benign RISK: Based on the Tyrer-Cuzick (TC) risk assessment model, this patient has a 8.5% lifetime risk of developing breast cancer, meaning they are at average risk for developing breast cancer. However, this is only an estimate based on available history provided on the patient's questionnaire. We encourage all patients to talk with their providers about these results, further recommendations for managing breast health, and appropriate supplemental screening options if the patient has dense breast tissue. Interpreting Radiologist: Gilma Betancourt M.D. Electronically signed on: 06/01/2024 Electric Range Servicer: MARTIN Transcribe Date/Time: Jun 01 2024 7:23A Dictated by: GILMA BETANCOURT MD This examination was interpreted and the report reviewed and electronically signed by: GILMA BETANCOURT MD on Jun 01 2024 8:24AM [facility] DIVISION OF RADIOLOGY * * *Final Report* * * DATE OF EXAM: Jun 01 2024 7:33AM [id number] - BRAD SCREENING W GINGER / PROCEDURE REASON: multiple diagnoses * * * * Physician Interpretation * * * * RESULT: [facility] [address] [place] [address] #[id number] - [facility] SCREENING W GINGER HISTORY: Patient is 64 years old and is seen for screening and is asymptomatic in both breasts. Patient states no personal history of breast cancer. Patient states no personal history of other cancers. COMPARISON STUDIES: The present examination has been compared to prior imaging studies dated 04/07/2020 (mammogram), 04/17/2021 (mammogram), 05/28/2022 (mammogram), 06/27/2022 (mammogram), 06/27/2022 (ultrasound) and 05/30/2023 (mammogram). MAMMOGRAM TECHNIQUE: The study was acquired using full field digital technology and interpreted from soft copy. Digital Breast Tomosynthesis (DBT) images were obtained and used to assist in the interpretation of this examination. MAMMOGRAM FINDINGS: The breasts are heterogeneously dense, which may obscure small masses. There is a stable biopsy marker in the right breast. There are no significant interval changes. No suspicious masses, calcifications or other abnormalities are seen in either breast. DIVISION OF RADIOLOGY Provider, [facility] - 06/01/2024 * * *Final Report* * * DATE OF EXAM: Jun 01 2024 7:33AM [id number] - BRAD SCREENING W GINGER / PROCEDURE REASON: multiple diagnoses * * * * Physician Interpretation * * * * RESULT: [facility] [address] [place] [address] #[id number] - [facility] SCREENING W GINGER HISTORY: Patient is 64 years old and is seen for screening and is asymptomatic in both breasts. Patient states no personal history of breast cancer. Patient states no personal history of other cancers. COMPARISON STUDIES: The present examination has been compared to prior imaging studies dated 04/07/2020 (mammogram), 04/17/2021 (mammogram), 05/28/2022 (mammogram), 06/27/2022 (mammogram), 06/27/2022 (ultrasound) and 05/30/2023 (mammogram). MAMMOGRAM TECHNIQUE: The study was acquired using full field digital technology and interpreted from soft copy. Digital Breast Tomosynthesis (DBT) images were obtained and used to assist in the interpretation of this examination. MAMMOGRAM FINDINGS: The breasts are heterogeneously dense, which may obscure small masses. There is a stable biopsy marker in the right breast. There are no significant interval changes. No suspicious masses, calcifications or other abnormalities are seen in either breast. IMPRESSION IMPRESSION: There is no mammographic evidence of malignancy. Routine screening mammogram is recommended. Annual mammogram will be due in 1 year. BI-RADS Category 2: Benign RISK: Based on the Tyrer-Cuzick (TC) risk assessment model, this patient has a 8.5% lifetime risk of developing breast cancer, meaning they are at average risk for developing breast cancer. However, this is only an estimate based on available history provided on the patient's questionnaire. We encourage all patients to talk with their providers about these results, further recommendations for managing breast health, and appropriate supplemental screening options if the patient has dense breast tissue. Interpreting Radiologist: Gilma Betancourt M.D. Electronically signed on: 06/01/2024 Electric Range Servicer: MARTIN Transcribe Date/Time: Jun 01 2024 7:23A Dictated by: GILMA BETANCOURT MD This examination was interpreted and the report reviewed and electronically signed by: GILMA BETANCOURT MD on Jun 01 2024 8:24AM EST [facility] Radiology Study observation (narrative) [facility] DBT Breast - bilateral scree ningOrdered By: [facility] Provider on 06-01-2024 [facility] BRAD SCREENING W TOMOon 06-01 BRAD SCREENING W GINGER * * *Final Report* * * DATE OF EXAM: Jun 01 2024 7:33AM [id number] - BRAD SCREENING W GINGER / PROCEDURE REASON: multiple diagnoses * * * * Physician Interpretation * * * * RESULT: [address] [place] [address] #[id number] - [facility] SCREENING W GINGER HISTORY: Patient is 64 years old and is seen for screening and is asymptomatic in both breasts. Patient states no personal history of breast cancer. Patient states no personal history of other cancers. COMPARISON STUDIES: The present examination has been compared to prior imaging studies dated 04/07/2020 (mammogram), 04/17/2021 (mammogram), 05/28/2022 (mammogram), 06/27/2022 (mammogram), 06/27/2022 (ultrasound) and 05/30/2023 (mammogram). MAMMOGRAM TECHNIQUE: The study was acquired using full field digital technology and interpreted from soft copy. Digital Breast Tomosynthesis (DBT) images were obtained and used to assist in the interpretation of this examination. MAMMOGRAM FINDINGS: The breasts are heterogeneously dense, which may obscure small masses. There is a stable biopsy marker in the right breast. There are no significant interval changes. No suspicious masses, calcifications or other abnormalities are seen in either breast. IMPRESSION: There is no mammographic evidence of malignancy. Routine screening mammogram is recommended. Annual mammogram will be due in 1 year. BI-RADS Category 2: Benign RISK: Based on the Tyrer-Cuzick (TC) risk assessment model, this patient has a 8.5% lifetime risk of developing breast cancer, meaning they are at average risk for developing breast cancer. However, this is only an estimate based on available history provided on the patient's questionnaire. We encourage all patients to talk with their providers about these results, further recommendations for managing breast health, and appropriate supplemental screening options if the patient has dense breast tissue. Interpreting Radiologist: Gilma Betancourt M.D. Electronically signed on: 06/01/2024 Electric Range Servicer: MARTIN Transcribe Date/Time: Jun 01 2024 7:23A Dictated by: GILMA BETANCOURT MD This examination was interpreted and the report reviewed and electronically signed by: GILMA BETANCOURT MD on Jun 01 2024 8:24AM EST [id number] CN Normal [facility] DIAG W GINGER LTon 023 [facility] US BREAST LTD LTon 3 [facility] SCREENING W TOMOon 05-28 [facility] Vital Signs Date Time Vital Sign Value Performing Clinician Rony hyatt 01-01-2025 08:16-0400 Body height 162.6 cm Dorothy Muhammad APRN.SUPERVISOR TYPE DISK QUALITY CONTROL Work Phone: [facility] 01-01-2025 08:16-0400 Body mass index (BMI) [Ratio] 26.26 kg/m2 Dorothy Muhammad PHOTOGRAPHY MANAGER.SUPERVISOR TYPE DISK QUALITY CONTROL Work Phone: [facility] 01-01-2025 08:16-0400 Body weight 69.4 kg Dorothy Haes PHOTOGRAPHY MANAGER.SUPERVISOR TYPE DISK QUALITY CONTROL Work Phone: [facility] 01-01-2025 08:16-0400 Diastolic blood pressure 70 mm[Hg] Dorothy Haes PHOTOGRAPHY MANAGER.SUPERVISOR TYPE DISK QUALITY CONTROL Work Phone: [facility] 01-01-2025 08:16-0400 Systolic blood pressure 112 mm[Hg] Dorothy Muhammad PHOTOGRAPHY MANAGER.SUPERVISOR TYPE DISK QUALITY CONTROL Work Phone: [facility] 10-13-2024 15:32-0400 Body mass index (BMI) [Ratio] 27.44 kg/m2 Krislyn Aberegg PA Work Phone: [facility] 10-13-2024 15:32-0400 Body temperature 97.39 [degF] Krislyn Aberegg PA Work Phone: [facility] 10-13-2024 15:32-0400 Body weight 70.5 kg Krislyn Aberegg PA Work Phone: [facility] 10-13-2024 15:32-0400 Diastolic blood pressure 76 mm[Hg] Krislyn Aberegg PA Work Phone: [facility] 10-13-2024 15:32-0400 Heart rate 76 /min Krislyn Aberegg PA Work Phone: [facility] 10-13-2024 15:32-0400 Respiratory rate 18 /min Krislyn Aberegg PA Work Phone: [facility] 10-13-2024 15:32-0400 SaO2% (BldA) [Mass fraction] 98 % Robert Hays PA Work Phone: [facility] 10-13-2024 15:32-0400 Systolic blood pressure 128 mm[Hg] Robert Aberegg PA Work Phone: [facility] 01-02-2024 08:15-0400 Body height 160.3 cm Dorothy Muhammad APRN.SUPERVISOR TYPE DISK QUALITY CONTROL Work Phone: [facility] 01-02-2024 08:15-0400 Body mass index (BMI) [Ratio] 25.6 kg/m2 Dorothy Muhammad PHOTOGRAPHY MANAGER.SUPERVISOR TYPE DISK QUALITY CONTROL Work Phone: [facility] 01-02-2024 08:15-0400 Body weight 65.77 kg Dorothy Muhammad PHOTOGRAPHY MANAGER.SUPERVISOR TYPE DISK QUALITY CONTROL Work Phone: [facility] 01-02-2024 08:15-0400 Diastolic blood pressure 74 mm[Hg] Dorothy Muhammad PHOTOGRAPHY MANAGER.SUPERVISOR TYPE DISK QUALITY CONTROL Work Phone: [facility] 01-02-2024 08:15-0400 Heart rate 84 /min Dorothy Muhammad PHOTOGRAPHY MANAGER.SUPERVISOR TYPE DISK QUALITY CONTROL Work Phone: [facility] 01-02-2024 08:15-0400 Respiratory rate 14 /min Dorothy Muhammad PHOTOGRAPHY MANAGER.SUPERVISOR TYPE DISK QUALITY CONTROL Work Phone: [facility] 01-02-2024 08:15-0400 SaO2% (BldA) [Mass fraction] 95 % Dorothy Muhammad APRN.SUPERVISOR TYPE DISK QUALITY CONTROL Work Phone: [facility] 01-02-2024 08:15-0400 Systolic blood pressure 128 mm[Hg] Dorothy Muhammad PHOTOGRAPHY MANAGER.SUPERVISOR TYPE DISK QUALITY CONTROL Work Phone: [facility] 09-28-2023 08:44-0400 Body mass index (BMI) [Ratio] 25.96 kg/m2 Sajan Ruiz APRN.SUPERVISOR TYPE DISK QUALITY CONTROL Work Phone: [facility] 09-28-2023 08:44-0400 Body temperature 97.81 [degF] Sajan Ruiz APRN.SUPERVISOR TYPE DISK QUALITY CONTROL Work Phone: [facility] 09-28-2023 08:44-0400 Body weight 67 kg Sajan Joseph PHOTOGRAPHY MANAGER.SUPERVISOR TYPE DISK QUALITY CONTROL Work Phone: [facility] 09-28-2023 08:44-0400 Diastolic blood pressure 75 mm[Hg] Sajan Joseph PHOTOGRAPHY MANAGER.SUPERVISOR TYPE DISK QUALITY CONTROL Work Phone: [facility] 09-28-2023 08:44-0400 Heart rate 87 /min Sajan Ruiz PHOTOGRAPHY MANAGER.SUPERVISOR TYPE DISK QUALITY CONTROL Work Phone: [facility] 09-28-2023 08:44-0400 Respiratory rate 18 /min Sajanblanca Ruiz PHOTOGRAPHY MANAGER.SUPERVISOR TYPE DISK QUALITY CONTROL Work Phone: [facility] 09-28-2023 08:44-0400 SaO2% (BldA) [Mass fraction] 96 % Sajan Ruiz PHOTOGRAPHY MANAGER.SUPERVISOR TYPE DISK QUALITY CONTROL Work Phone: [facility] 09-28-2023 08:44-0400 Systolic blood pressure 129 mm[Hg] Sajan Ruiz PHOTOGRAPHY MANAGER.SUPERVISOR TYPE DISK QUALITY CONTROL Work Phone: [facility] 12-05-2022 08:54-0400 Body height 160.7 cm Sabine Alberto MD Work Phone: [facility] 12-05-2022 08:54-0400 Body weight 71.22 kg Sabine Alberto MD Work Phone: [facility] 12-05-2022 08:54-0400 Diastolic blood pressure 76 mm[Hg] Sabine Alberto MD Work Phone: [facility] 12-05-2022 08:54-0400 Systolic blood pressure 122 mm[Hg] Sabine Alberto MD Work Phone: [facility] Encounters Encounter Date Encounter Type Care Provider Facility Start: 01-21-2025 End: 01-21-[address] Facility:[facility] Start: 01-01-2025 End: 01-01-2025 Patient encounter procedure Dorothy Muhammad PHOTOGRAPHY MANAGER.SUPERVISOR TYPE DISK QUALITY CONTROL Work Phone: OB/Gynecology Comment on above: Encounter for gyneco logical examination (general) (routine) without abnormal findings (Primary Dx); Encounter for screening mammogram for breast cancer; Dense breasts; Encounter for screening for osteoporosis; Asymptomatic postmenopausal status Start: 01-01-2025 End: 01-01-2025 Patient encounter status Dorothy Muhammad APRN.CNP Work Phone: [facility] Start: 01-01-2025 End: 01-01-2025 ambulatory DOROTHY MUHAMMAD Facility:[facility] Start: 01-01-2025 Encounter for gynecological examination (general) (routine) without abnormal findings DOROTHY MUHAMMAD [facility] Start: 10-13-2024 End: 10-13-2024 Patient encounter procedure Robert MALLORY Work Phone: [facility] Comment on above: Bacterial sinusitis (Primary Dx) Start: 10-13-2024 End: 10-13-2024 ambulatory CELY LÓPEZ Facility:[facility] Start: 07-24-2024 End: 07-24-[address] Cely López MD Work Phone: [facility] Work Phone: Start: 07-24-2024 End: 07-24-[address] [facility] Start: 07-24-2024 End: 07-24-2024 ambulatory Cely López Facility:[facility] Start: 06-01-2024 End: 06-01-2024 ambulatory DOROTHY MUHAMMAD Facility:[facility] Start: 06-01-2024 End: 06-01-2024 Patient encounter status Screen [facility] Start: 06-01-2024 End: 06-01-2024 Subsequent hospital visit by physician Screen Mammo [facility] Comment on above: Encounter for gyneco logical examination (general) (routine) without abnormal findings [Z01.419] Start: 01-02-2024 End: 01-02-2024 Patient encounter procedure Dorothy Muhammad APRN.CNP Work Phone: OB/Gynecology Comment on above: Encounter for gyneco logical examination (general) (routine) without abnormal findings (Primary Dx); Dense breast tissue; Encounter for screening for osteoporosis; Asymptomatic postmenopausal status Start: 01-02-2024 End: 01-02-2024 Patient encounter status Dorothy Muhammad APRN.SUPERVISOR TYPE DISK QUALITY CONTROL Work Phone: [facility] Start: 09-28-2023 End: 09-28-2023 Patient encounter procedure Sajan Ruiz SUPERVISOR TYPE DISK QUALITY CONTROL Work Phone: [facility] Comment on above: Sinobronchitis (Prim mary Dx) Start: 12-05-2022 End: 12-05-2022 Patient encounter procedure Sabine Alberto MD Work Phone: OB/Gynecology Comment on above: Encounter for gyneco logical examination (general) (routine) without abnormal findings (Primary Dx); Encounter for screening mammogram for breast cancer Start: 12-05-2022 End: 12-05-2022 Patient encounter status Sabine Alberto MD Work Phone: [facility] Start: 06-27-2022 End: 06-27-2022 Subsequent hospital visit by [place] [facility] Work Phone: Radiology Comment on above: Abnormal mammogram [ R92.8] Start: 05-28-2022 Documentation procedure Mammog blaire Coordinator [facility] Start: 05-28-2022 Letter encounter Mammography Coordinator [facility] Department Start: 05-28-2022 End: 05-28-2022 Orders Only Sabine Alberto MD Work Phone: OB/Gynecology Comment on above: Abnormal mammogram ( Primary Dx) Encounter for screen ing mammogram for malignant neoplasm of breast [Z12.31] Start: 04-05-2022 Telephone encounter Sabine Alberto MD Work Phone: OB/Gynecology Comment on above: Orders Start: 02-04-2018 Patient encounter [facility] Start: 03-22-2010 Patient encounter status Jermain Alberto MD Work Phone: [facility] Work Phone: Procedures Date Procedure Procedure Detail Performing Clinician Start: 06-01-2024 Screening digital br east tomosynthesis bi Dorothy Muhammad APRN.SUPERVISOR TYPE DISK QUALITY CONTROL Work Phone: Start: 06-27-2022 Us breast uni real t tomasa with image limited Sabine Alberto MD Work Phone: Start: 06-27-2022 Digital breast tomosynthesis unilateral Sbaine Alberto MD Work Phone: Start: 05-28-2022 BRAD SCREENING W GINGER Re nee [place] PHOTOGRAPHY MANAGER.SUPERVISOR TYPE DISK QUALITY CONTROL Work Phone: Start: 05-28-2022 Mammography Sabine price MD Work Phone: Start: 04-17-2021 Mammography Sabine price MD Work Phone: Start: 03-24-2010 Lipid 1996 panel - S asia or Plasma Us 1 Work Phone: Plan of Treatment Date Care Activity Detail Author Start: 2037 RSV Vaccine (1 - 1-d ose 75+ series) RSV Vaccine (1 - 1-dose 75+ series) [facility] Start: 06-05-2026 HPV TESTING HPV TESTING [facility] Start: 06-05-2026 PAP TESTING PAP TESTING [facility] Start: 06-05-2026 Screening for malign ant neoplasm of cervix [facility] Start: 01-03-2026 End: 01-03-2026 Patient encounter procedure 01/03/2026 8:15 AM EDT Office Visit OB/Gynecology [address] [place] [id number] Dorothy Muhammad APRN.SUPERVISOR TYPE DISK QUALITY CONTROL [address] [place] [address] Annual OB/Gynecology Comment on above: Annual Start: 06-02-2025 End: 06-02-2025 Patient encounter procedure 06/02/2025 7:50 AM EST Appointment Mammogram [address] [place] [id number] : Encounter for screening mammogram for breast cancer [Z12.31] Mammogram Comment on above: : Encounter for scre ening mammogram for breast cancer [Z12.31] Start: 06-01-2025 Screening for malign ant neoplasm of breast Mammogram Screening [facility] Start: 04-12-2025 End: 04-12-2025 Patient encounter procedure 04/12/2025 8:20 AM EST Appointment Radiology [address] [place] [id number] : Encounter for screening for osteoporosis [Z13.820]; Asymptomatic postmenopausal status [Z78.0] Radiology Comment on above: : Encounter for scre ening for osteoporosis [Z13.820]; Asymptomatic postmenopausal status [Z78.0] Start: 02-23-2025 Urine microalbumin profile [facility] Start: 01-06-2025 End: 01-06-2025 Patient encounter procedure 01/06/2025 8:15 AM EDT Office Visit OB/Gynecology [address] [place] [address] Dorothy Muhammad APRN.SUPERVISOR TYPE DISK QUALITY CONTROL [address] [place] [address] Annual OB/Gynecology Comment on above: Annual Start: 01-04-2025 Influenza vaccination [facility] Start: 01-01-2025 End: 01-01-2025 Patient encounter procedure 01/01/2025 8:15 AM EDT Office Visit OB/Gynecology [address] [place] [address] Dorothy Muhammad APRN.SUPERVISOR TYPE DISK QUALITY CONTROL [address] [place] [address] Annual OB/Gynecology Comment on above: Annual Start: 06-01-2024 End: 06-01-2024 Patient encounter procedure 06/01/2024 7:30 AM EST Appointment Mammogram [address] [place] [address] Encounter for gynecological examination (general) (routine) without abnormal findings [Z01.419]; Dense breast tissue [R92.30] Mammogram Comment on above: Encounter for gyneco logical examination (general) (routine) without abnormal findings [Z01.419]; Dense breast tissue [R92.30] Start: 05-30-2024 Screening for malign ant neoplasm of breast Mammogram Screening [facility] Start: 01-05-2024 Covid-19 Vaccine ( season) Covid-19 Vaccine ( season) [facility] Start: 01-05-2024 Influenza vaccination [facility] Start: 01-01-2024 End: 01-01-2024 Patient encounter procedure 01/01/2024 4:00 PM EDT Office Visit OB/Gynecology [address] [place], [place] [address] Sabine Alberto MD [address] [place], [place] [id number] Annual OB/Gynecology Comment on above: Annual Start: 05-28-2023 Mammography [facility] Start: 05-06-2023 Behavioral Health Screening Behavioral Health Screening [facility] Start: 01-04-2023 Covid-19 Vaccine () Covid-19 Vaccine () [facility] Start: 01-04-2023 Influenza vaccination [facility] Start: 05-06-2022 DEPRESSION ASSESSMENT DEPRESSION ASS ESSMENT [facility] Start: 04-17-2022 Mammography MAMMOGRAM [facility] Start: 2022 RSV Vaccine (1 - 1-d ose 60+ series) RSV Vaccine (1 - 1-dose 60+ series) [facility] Start: 01-04-2022 Influenza vaccination INFLUENZA (#1) [facility] Start: 06-14-2021 COVID-19 VACCINE (4 - Booster for Moderna series) COVID-19 VACCINE (4 - Booster for Moderna series) [facility] Start: 06-14-2021 COVID-19 VACCINE (4 - Moderna series) COVID-19 VACCINE (4 - Moderna series) [facility] Start: 05-06-2021 DEPRESSION ASSESSMENT DEPRESSION ASS ESSMENT [facility] Start: 03-24-2015 Lipid 1996 panel - S asia or Plasma Lipid Screening [facility] Start: 03-24-2015 Lipid panel Lipid Screening [facility] Start: 03-24-2015 LIPID SCREEN LIPID SCREEN [facility] Start: 03-24-2013 DIABETES SCREEN DIABETES SCREEN [facility] Start: 03-24-2013 Diabetes Screening Diabetes Screenin g [facility] Start: 01-19-2012 SHINGRIX VACCINE (1 of 2) SHINGRIX VACCINE (1 of 2) [facility] Start: 2007 COLOGUARD (FIT-DNA) COLOGUARD (FIT-D NA) [facility] Start: 2007 Colonoscopy COLONOSCOPY [facility] Start: 2007 COLORECTAL CANCER SCREENING COLORECTAL CANCER SCREENING [facility] Start: [address] COLONOGRAPHY [facility] Start: 2007 FECAL OCCULT BLOOD FECAL OCCULT BLOO D [facility] Start: 2007 Screening for malign ant neoplasm of colon [facility] Start: 2007 SIGMOIDOSCOPY SIGMOIDOSCOPY [facility] Start: 1981 Pneumococcal Vaccine : 50+ (1 of 2 - PCV) Pneumococcal Vaccine: 50+ (1 of 2 - PCV) [facility] Start: 1981 Urine microalbumin profile DTAP,TDAP,TD (1 - Tdap) [facility] Start: 01-19-1980 Anxiety Screening Anxiety Screening [facility] Start: 01-19-1980 Depression Screening Depression Scre ing [facility] Start: 01-19-1980 HEPATITIS C SCREENING HEPATITIS C [facility] Start: 01-19-1980 Hepatitis C screening Hepatitis C [facility] Start: 01-19-1980 HIV SCREENING HIV SCREENING [facility] Start: 01-19-1980 HIV screening HIV Screening [facility] Start: 01-19-1968 PNEUMOCOCCAL (1 - PCV) PNEUMOCOCCAL (1 - PCV) [facility] Start: 01-19-1968 Pneumococcal vaccination [facility] End: 01-31-2025 BD DXA TRABECULAR BONE SCORE (TBS) BD DXA TRABECULAR BONE SCORE (TBS) Radiology Routine Encounter for screening for osteoporosis Asymptomatic postmenopausal status 1 Occurrences starting 01/02/2024 until 01/31/2025 [facility] Comment on above: 1 Occurrences starti ng 01/02/2024 until 01/31/2025 End: 01-31-2026 BD DXA TRABECULAR BONE SCORE (TBS) BD DXA TRABECULAR BONE SCORE (TBS) Radiology Routine Encounter for screening for osteoporosis Asymptomatic postmenopausal status 1 Occurrences starting 01/01/2025 until 01/31/2026 [facility] Comment on above: 1 Occurrences starti ng 01/01/2025 until 01/31/2026 End: 01-31-2025 DBT Breast - bilateral screening BRAD SCREENING W GINGER Radiology Routine Encounter for gynecological examination (general) (routine) without abnormal findings Dense breast tissue 1 Occurrences starting 01/02/2024 until 01/31/2025 [facility] Work Phone: Comment on above: 1 Occurrences starti ng 01/02/2024 until 01/31/2025 End: 01-31-2026 DBT Breast - bilateral screening BRAD SCREENING W GINGER Radiology Routine Encounter for screening mammogram for breast cancer 1 Occurrences starting 01/01/2025 until 01/31/2026 [facility] Work Phone: Comment on above: 1 Occurrences starti ng 01/01/2025 until 01/31/2026 End: 06-27-2023 Diagnostic mammography computer-aided detcj uni BRAD DIAGNOSTIC LT Radiology Routine Abnormal mammogram 1 Occurrences starting 05/28/2022 until 06/27/2023 [facility] Work Phone: Comment on above: 1 Occurrences starti ng 05/28/2022 until 06/27/2023 End: 01-31-2025 DXA Skeletal system.axial Views for bone density DXA-AXIAL SKELETON Radiology Routine Encounter for screening for osteoporosis Asymptomatic postmenopausal status 1 Occurrences starting 01/02/2024 until 01/31/2025 [facility] Comment on above: 1 Occurrences starti ng 01/02/2024 until 01/31/2025 End: 01-31-2026 DXA Skeletal system.axial Views for bone density DXA-AXIAL SKELETON Radiology Routine Encounter for screening for osteoporosis Asymptomatic postmenopausal status 1 Occurrences starting 01/01/2025 until 01/31/2026 [facility] Comment on above: 1 Occurrences starti ng 01/01/2025 until 01/31/2026 End: 05-05-2023 BRAD SCREENING W GINGER BRAD SCREENING W GINGER Radiology Routine Encounter for screening mammogram for malignant neoplasm of breast 1 Occurrences starting 04/06/2022 until 05/05/2023 [facility] Work Phone: Comment on above: 1 Occurrences starti ng 04/06/2022 until 05/05/2023 End: 01-04-2024 BRAD SCREENING W GINGER BRAD SCREENING W GINGER Radiology Routine Encounter for gynecological examination (general) (routine) without abnormal findings Encounter for screening mammogram for breast cancer 1 Occurrences starting 12/05/2022 until 01/04/2024 [facility] Work Phone: Comment on above: 1 Occurrences starti ng 12/05/2022 until 01/04/2024 End: 01-31-2026 US Breast - bilateral US BREAST COMPLETE BILATERAL Radiology Routine Encounter for screening mammogram for breast cancer Dense breasts 1 Occurrences starting 01/01/2025 until 01/31/2026 [facility] Comment on above: 1 Occurrences starti ng 01/01/2025 until 01/31/2026 End: 06-27-2023 Us breast uni real time with image limited US BREAST LTD LT Radiology Routine Abnormal mammogram 1 Occurrences starting 05/28/2022 until 06/27/2023 [facility] Work Phone: Comment on above: 1 Occurrences starti ng 05/28/2022 until 06/27/2023 [facility] Immunizations Immunization Date Immunization Notes Care Provider Fa [facility] 04-19-2021 COVID-19 original vaccine, full dose, monovalent (MODERNA) Sabine Alberto MD Work Phone: [facility] Work Phone: 08-10-2020 COVID-19 original vaccine, full dose, monovalent (MODERNA) Sabine Alberto MD Work Phone: [facility] Work Phone: 07-14-2020 COVID-19 original vaccine, full dose, monovalent (MODERNA) Sabine Alberto MD Work Phone: [facility] Work Phone: 02-23-2015 tetanus toxoid, redu brittanie diphtheria toxoid, and acellular pertussis vaccine, adsorbed [facility] Payers Date Payer Category Payer Self-pay [id number] 2022 Private Health Insurance [id number] 2022 Unknown [id number] 2013 Unknown [id number] 2006 Unknown [employer] PPO [id number] 2006-Present [phone] [address] [place] [address] PPO [id number] Unknown [id number] Social History Date Type Detail Facility Start: 03-15-1996 End: 01-02-2024 Tobacco smoking status NHIS Occasional tobacco smoker [facility] Start: 03-15-1996 End: 03-15-2012 History of tobacco use Cigarette Smoker [facility] Start: 12-21-2016 End: 12-05-2022 Cigarettes smoked current (pack per day) - Reported 1 [facility] Start: 12-21-2016 End: 01-01-2025 Tobacco use and exposure Smokeless tobacco non-user [facility] Start: 06-05-2021 End: 01-01-2025 Alcohol intake Current drinker of alcohol (finding) [facility] Start: 11-16-2016 End: 12-05-2022 Tobacco Comment Currently trying to quit, using chantix [facility] Start: 1960 Sex Assigned At Not on file [facility] Start: 1960 Sex Assigned At Female W [facility] Start: 12-05-2022 End: 01-01-2025 Tobacco use panel [facility] Start: 04-06-2012 National Score (1-10 0), lower number is lower risk 50 [facility] Start: 03-15-1996 End: 01-01-2025 Tobacco smoking status WYIS Smokes tobacco daily (finding) [facility] Start: 07-30-2024 Sex Female (finding) [facility] Functional Status Date Assessment Result Facility 09-10-2014 Are you deaf, or do you have serious difficulty hearing No 09/10/2014 8:59 AM Sylvia Riley MA No [facility] 09-10-2014 Are you blind, or do you have serious difficulty seeing, even when wearing glasses No 09/10/2014 8:59 AM EDT Sylvia Garsia MA [facility] 09-10-2014 Do you have serious difficulty walking or climbing stairs No 09/10/2014 8:59 AM EDT Sylvia Garsia MA [facility] 09-10-2014 Do you have difficul ty dressing or bathing No 09/10/2014 8:59 AM EDT Sylvia Garsia MA [facility] 09-10-2014 Because of a physica l, mental, or emotional condition, do you have difficulty doing errands alone such as visiting a physician's office or shopping No 09/10/2014 8:59 AM T Sylvia Garsia MA [facility] Mental Status Date Assessment Result Facility 09-10-2014 Because of a physica l, mental, or emotional condition, do you have serious difficulty concentrating, remembering, or making decisions No 09/10/2014 8:59 AM LAILAT Sylvia Garsia MA [facility] Clinical Notes 04-06-2022 to 01-21-2025 Patient InstructionsDorothy Muhammad APRN.SUPERVISOR TYPE DISK QUALITY CONTROL - 01/01/2025 8:10 AM Robert Ibarra PA - 10/13/2024 3:42 PM Maynor Shelton [employer] - 06/01/2024 7:30 AM ESTPatient Instructions Note Date & Type Note Facility 01-21-2025 Note HNO ID: [id number] Author: REBA GARCIA APRN.SUPERVISOR TYPE DISK QUALITY CONTROL Service: ? Author Type: Nurse Practitioner Type: Progress Notes Filed: 01/21/2025 10:11 Note Text: SUBJECTIVE: Heather Brooks is a 65 year old female. Who presents today with concerns for a sinus infection. She has had sinus pressure cough headache green mucus for the last 10 days. She has not had a fever. She has had sinus infections in the past. She has not been exposed to anyone who is sick. She is leaving in a couple of days to fly to [facility] for vacation PAST MEDICAL HISTORY Diagnosis Date Anxiety, generalized Per patient Dense breast Tobacco use disorder Age 34 FAMILY HISTORY Problem Relation Age of Onset Breast Cancer Mother 70 and 85 Stroke Mother Emphysema Father Colon Cancer Other none Diabetes Other none Coronary Artery Disease Other none SOCIAL HISTORY[1] ALLERGIES No Known Allergies Current Outpatient Medications Medication Sig Dispense Refill ergocalciferol, vitamin D2, (VITAMIN D2 PO) Take by mouth. LORazepam (ATIVAN) 0.5 mg TAKE 1 (ONE) TABLET DAILY IF NEEDED FOR ANXIETY [id number] ORAL Take 1 capsule by mouth once daily. BEE POLLEN ORAL Take 2 capsules by mouth once daily. No current facility-administered medications for this visit. OBJECTIVE: BP 133/82 Pulse 88 Temp 36.3 ?C (97.3 ?F) Resp 22 Wt 69 kg (152 lb 1.9 oz) LMP 06/22/2015 (Within Days) SpO2 99% BMI 26.11 kg/m? ROS all other systems reviewed and are negative Physical Exam Constitutional: Well developed, well nourished, NAD, AANDO X3 ENT: Head is atraumatic, airway patent, mucosal membranes moist pink Cardiac: Heart tone normal rate and rhythm Respiratory: Respirations even and unlabored, Lung sounds clear : no CVA tenderness MS: no swelling, or deformity in upper or lower extremities, no midline tenderness in cervical, thoracic or lumbar spine. Neuro: strength sensation and coordination intact. CN II-XII grossly intact, Skin: warm and dry with out rash, lesion or ecchymosis on exposed skin Psych: alert appropriate, speech clear MDM It was a pleasure to take care of Heather Brooks today. Patient's symptoms have lingered for the last 10 days I will treat her today with an antibiotic. She has had Augmentin in the past when she has had her sinus infections and this has worked well for her. She may take Motrin and Tylenol for any discomfort. She currently uses Flonase and may continue this medication. She has also taken Sudafed and she may continue with this medication as well. She will increase her fluids for hydration. Patient has verbalized understanding of plan of care and is agreeable Patient will follow up with family physician. They may return to the Urgent Care or go to the ER for worsening symptoms or concerns. Patient verbalized understanding of plan of care and is in agreement. ASSESSMENT/PLAN: 1. Bacterial sinusitis - ICD9: 473.9, 041.9, ICD10: J32.9, B96.89 - AMOXICILLIN 875 MG-POTASSIUM CLAVULANATE 125 MG TABLET Reba Garcia APRN.CNP History and Record Review Systemic symptoms present included: Differential Diagnoses - Sinusitis is more likely for the following reason(s): suggested by HANDP - Pneumonia is less likely for the following reason(s): HANDP not suggestive Disposition The patient was discharged. OTC Medications were advised: [1] Social History Tobacco Use Smoking status: Every Day Current packs/day: 0.00 Average packs/day: 1 pack/day for 16.0 years (16.0 ttl pk-yrs) Types: Cigarettes Start date: 03/15/1996 Last attempt to quit: 03/15/2012 Years since quittin.8 Smokeless tobacco: Never Tobacco comments: Currently trying to quit, using chantix Vaping Use Vaping status: Never Used Substance Use Topics Alcohol use: Yes Alcohol/week: 15.0 - 20.0 standard drinks of alcohol Types: 15 - 20 Glasses of Wine (5oz) per week Drug use: Not Currently Types: Marijuana [facility] 01-01-2025 Instructions Dorothy Muhammad APRN.CNP - 01/01/2025 8:29 AM EDT Images from the original note were not included. Calcium and Vitamin D Supplementation For more information:My [facility] Osteopenia Calcium Age Recommended Daily Allowance Age 19-50 1000 mg elemental calcium per day Age > 50 or menopausal 1200 mg elemental calcium per day Vitamin D Age Recommended Daily Allowance Age < 70 600 international units Vitamin D per day Age > 70 800 international units Vitamin D per day Centers for Disease Control and Prevention recommends that all adults engage in at least 150 to 300 minutes per week of moderate-intensity activity or 75 minutes to 150 minutes per week of vigorous-intensity aerobic physical activity (or a combination of both). [place] [employer]ne[employer] (ACOG) and several other major osteoporosis guideline groups recommend screening for osteoporosis with Dual-energy X-ray Absorptiometry (DXA) in all postmenopausal BONE MINERAL DENSITY PATIENT INSTRUCTIONS Bone mineral density testing measures the amount of calcium in certain parts of your bones. This information determines how strong your bones are. The test is used to detect osteoporosis, a disease in which the bone's mineral content and density are low, increasing a person's risk of fractures. The lumbar spine (lower back) and the hip are the skeletal sites usually examined. For the test, remember that: 1. You cannot take this test if you are . 2. Eat a normal diet on the day of the test. 3. Take your medications as you normally would. 4. DO NOT take calcium supplements (such as Tums) for 24 hours before the test. 5. On the day of the test, leave valuables (jewelry or credit cards) at home. 6. The test should be performed prior to oral, rectal or IV contrast studies, or at least 7 days after any of these studies. For the test, you may be asked to wear a hospital gown. You will lie on your back, on a padded table, in a comfortable position. Generally, you can resume your usual activities immediately. [facility] s Smoking Cessation Program The [facility] Smoking Cessation Program is a comprehensive, multifaceted program that can be tailored to your individual needs. We offer a variety of services designed to help you throughout the process, including office visits, distance health visits (virtual or telephone), and the eCoach program or pharmacy consultations. To schedule, call [phone] Appointments: An office visit: This is a one-on-one approach where you go to an office and meet with the provider to discuss your options for quitting. Distance health visits: This type of visit can be completed via virtual visit or telephone visit. Virtual visits require a smartphone, tablet or computer with access to a webcam, microphone and Internet connection. You will need to sign up for [employer] prior to your virtual visit. Telephone visits can be completed via audio only if patient does not have access to the above Pharmacotherapy Nicotine replacement therapy (patches, gum, lozenges, inhalers or nasal spray) Bupropion (Wellbutrin) Chantix Integrative and Lifestyle Medicine Services: Acupuncture Holistic Psychotherapy Meditation Yoga And more The eCoach program Expert tips tailored to you Behavioral replacements Recognizing individual triggers On your schedule Pharmacy consultation You can meet with a pharmacist (either online or in person) to discuss smoking cessation medications, including: Nicotine replacement therapy: gum, patches, lozenges, inhalers or nasal spray Bupropion SR Varenicline (Chantix ) The [place] [employer] (ACS) has a section devoted to quitting tobacco with information on where to get help, interactive tools, the relationship of tobacco and cancer, how to keep your kids smoke-free, smoke-free communities and the ACS s annual [place] Smokeout. Visit this link for more info: https://www.cancer.org/cancer/r isk-prevention/tobacco/guide-qu itting-smoking.html The [place] [employer] has tools, tips, support and fact sheets to help you stop smoking or to help a loved one quit. There s also more information about [place] From Smoking , the program we use in our smoking classes at [facility]. Visit this link for more info: https://www.lung.org/quit-smoki ng/hvyo-xqhedre-lvly-smoking The National Cancer [place] s site, Smokefree.gov, has an abundance of free and accurate resources to encourage smokers to stop: Smokefree apps for your smartphone offer individualized guidance once you input your information You can sign up for the SmokefreeSecure-24T text messaging program, which sends you daily text messages with encouragement, tips and advice to help making quitting easier Create a personalized Quit Plan by choosing a quit date and answering seven questions Take a quiz on your withdrawal symptoms See how you can prepare to quit 3-980-QIHG-NOW is the national portal to a network of state quitlines. Quitlines offer evidence-based support--like counseling, referrals to local programs, and free medication--to people who want to quit tobacco. What does dense breasts mean? Density is an indicator of how much glandular tissue relative to fatty tissue is in the breast. The picture to the right shows the four categories of breast density. If a patient s mammogram indicates there is heterogeneous or extremely dense tissue, then they have dense breasts. By mammography, both dense tissue and masses appear white, which makes it more challenging to detect masses in dense breasts. Supplemental screening helps uncover masses that may be obscured in dense tissue. Many women have dense breasts. Nearly half of all women age 40 years and older have dense breasts. What is supplemental breast cancer screening? Supplemental screening is an additional screening test available for women with dense breasts who have had a normal screening mammogram. Supplemental screening does NOT replace annual screening mammography. Women with dense breasts may benefit from supplemental imaging tests such as whole breast ultrasound or breast MRI after they have had a normal screening mammogram. Supplemental screening exams make it more likely that your doctor will detect cancer earlier. However, additional screening also increases the chance of a false positive (a test result that falsely indicates an abnormality is present). Because of this, there may be an increased need for follow-ups or biopsies if the screening shows something that appears abnormal. Choosing which test is right for you will also depend on your lifetime risk of developing breast cancer. Talk with your healthcare provider about which supplemental screening option is best for you. In vast majority of cases, having both an ultrasound and an MRI does not provide additional benefit, so only one may be recommended. How does supplemental breast cancer screening work? Whole Breast Ultrasound Whole breast ultrasound (WBUS) is a non-invasive supplemental screening test used for women with dense breasts and at average risk for development of breast cancer. During WBUS studies, a small device called a transducer is scanned over the breast and uses sound waves to generate an image of the breast tissue. It does not require IV contrast or radiation. WBUS may be performed using either an automated breast ultrasound (ABUS) or a handheld transducer. (A breast radiologist will determine which way is best for the patient.) ABUS is performed by a technologist who will place a square transducer with a compression screen on the breast. The transducer will automatically sweep over the breast and collect multiple images. This exam typically takes 15 to 20 minutes to do. The ABUS images are then sent to the radiologist s workstation where she/he will review and issue a report. Handheld WBUS studies, on the other hand, are also performed by a technologist. However, during this exam, the technologist will actually sweep a smaller rectangular transducer over the breast. In this exam, the technologist has to manually take individual images. These exams typically take 20-30 minutes to do. The handheld WBUS images are also sent to the radiologist s workstation where she/he will review and issue a report. Patients with implantable devices on their chest (eg. pacemaker, defibrillator, loop recorder) are not candidates for ABUS, and should instead specifically schedule a handheld whole breast ultrasound Dense Breast MRI Breast MRI is the most sensitive tool for detecting invasive breast cancer. There are two ways to perform a breast MRI -- one protocol is used for women who are at average risk for developing breast cancer and have dense tissue, while the second is specifically used for patients who are at high risk for developing breast cancer, regardless of their breast density. For both exams, an IV will be placed in the arm to administer contrast during the exam. The patient will lie face down on a table, which will then move into the MRI machine. Depending on which protocol is used, the exam will last anywhere from 10-30 minutes. MRI machines are loud, so the technologist will provide earplugs to make the examination more comfortable. There is no radiation used during a breast MRI. Does insurance cover supplemental screening? Insurance coverage of supplemental screening varies. We encourage you to check with your individual insurance to determine if the service is covered and or subject to co-pay. They may ask you for the CPT code for the procedure. Study (Order) CPT code Whole Breast Ultrasound ABUS or Handheld (US BREAST COMPLETE) 60256 Dense Breast MRI Limited with Contrast 07347 with modifier -52 Breast MRI Full protocol 37519 You will hear from your doctor about which supplemental test they recommend. Once your doctor orders the test, please contact [facility] [phone] to schedule your supplemental screening. documented in this encounter [facility] 01-01-2025 Note HNO ID: [id number] Author: DOROTHY MUHAMMAD APRN.CNP Service: ? Author Type: Nurse Practitioner Type: Progress Notes Filed: 01/01/2025 08:44 Note Text: Registry Nurse offered: Patient declinesPenelope Romero is a 64 year old who presents for an annual gynecologic exam without complaints. Postmenopausal: Yes HRT use: No. Still get period: No LMP: 06/22/2015 Menopause symptoms: None Contraception: Post Menopausal and Tubal Ligation Contraception frequency: Always HPV vaccine: No Last pap smear: 06/05/2021 normal, HPV negative History of abnormal pap: No Bothersome pelvic pain: No Last mammogram: 05/2024 benign History of abnormal mammogram: Yes , hx of breast biopsy OB History Gravida3 Para3 Term3 Preterm0 AB0 Living3 SAB0 IAB0 Ectopic0 Multiple0 Live Births0 Comment: Menarche: 15; Age at 1st : 18; Post menopausal Core Sucker History LMP: 06/22/2015 (Within Days), Postmenopausal Age at Menarche: 16 Age at First : Age at Menopause: Core Sucker History Comments: Sexual Activity: Not Currently; Male Contraception: Tubal Ligation PAST MEDICAL HISTORY Diagnosis Date Anxiety, generalized Per patient Tobacco use disorder Age 34 PAST SURGICAL HISTORY Procedure Laterality Date APPENDECTOMY 1972 ARTHROSCOPY KNEE DIAGNOSTIC W/WO SYNOVIAL BX SPX 1994 Arthroscopy, knee Rt - torn meniscus BX BREAST PERC NEED W/GUID 04/20/13 U/S needle core right breast 9:30 plus 5 ENDOMETRIAL BX W/WO ENDOCERVIX BX W/O DILAT SPX 06/28/2010 Thickened Endometrium EXC BREAST LES PREOP PLMT RAD MARKER OPEN 1 LES 05-19-13 right FNA WITH IMAGING 05/18/13 U/S FNA 1 Oclock right breast cyst FNA WITH IMAGING Right 10/31/15 U/S FNA UOQ right x 3 FNA WITH IMAGING Right 04/27/2016 U/S FNA right breast cysts x 3 LIG/TRNSXJ FLP TUBE ABDL/VAG APPR UNI/BI 1987 Tubal ligation TONSILLECTOMY PRIMARY/SECONDARY Tonsillectomy FAMILY HISTORY Problem Relation Age of Onset Breast Cancer Mother 70 and 85 Stroke Mother Emphysema Father Colon Cancer Other none Diabetes Other none Coronary Artery Disease Other none SOCIAL HISTORY Social History Tobacco Use Smoking status: Every Day Current packs/day: 0.00 Average packs/day: 1 pack/day for 16.0 years (16.0 ttl pk-yrs) Types: Cigarettes Start date: 03/15/1996 Last attempt to quit: 03/15/2012 Years since quittin.8 Smokeless tobacco: Never Tobacco comments: Currently trying to quit, using chantix Vaping Use Vaping status: Never Used Substance Use Topics Alcohol use: Yes Alcohol/week: 15.0 - 20.0 standard drinks of alcohol Types: 15 - 20 Glasses of Wine (5oz) per week Drug use: Not Currently Types: Marijuana REVIEW OF SYSTEMS Abdomen: No abdominal pain, nausea, vomiting, diarrhea, or constipation. No bloating, early satiety, indigestion, or increased flatulence. Bladder: No dysuria, gross hematuria, urinary frequency, urinary urgency, or incontinence Breast: No breast lumps, nipple d/c, overlying skin changes, redness or skin retraction Allergies and current medication updated:Yes SENSITIVE EXAM: The sensitive examination was discussed with the Patient or Patient's Authorized Toe Stripper. As applicable, any other physician, advance practice provider, medical student, or other health professional student that will be observing or involved in the sensitive examination for educational or training purposes was discussed with the Patient or Authorized Toe Stripper. The Patient or Authorized Toe Stripper has agreed to proceed with the sensitive examination. (Sensitive examination includes inspection and/or palpation of the breasts, pelvis, prostate and anorectal regions). EXAM: BP 112/70 Ht 5' 4" (1.63m) Wt 153 lb (69.4kg) LMP 06/22/2015 BMI 26.25 kg/(m2). GENERAL: pleasant, female in no apparent distress HEENT: Normocephalic, atraumatic, mucus membranes moist, and no lesions NECK: Supple, full range of motion, no adenopathy, and thyroid normal DERMATOLOGY: Normal, without lesions, non-icteric, and non-hirsute BREAST: soft, non-tender, symmetric, no dominant mass, normal nipple-areolar complex, no lymphadenopathy, and no nipple discharge CHEST: Normal inspiratory effort ABDOMEN: soft, non-tender, and no masses PELVIC: external genitalia atrophic, normal Bartholin's glands, urethra, [place]'s glands, no vulvar lesions, no cervical lesions, good vaginal support, physiologic discharge present, normal appearing perineal body and perianal region BIMANUAL: uterus normal size, shape and consistency, no adnexal masses, and non-tender RECTOVAGINAL: deferred. NEURO: alert and oriented x3,exam grossly non-focal EXTREMITIES: normal ASSESSMENT/PLAN: 1) Health maintenance: Pap/HPV up to date 2021. Due 2026. Mammogram up to date Nutrition, exercise and routine health maintenance exams reviewed. Calcium/Vitamin D supplementation information provided. Smoking cessa (more content not included)... [facility] 01-01-2025 History of Presen t illness Narrative Registry Nurse offered: Patient declinesPenelope Romero is a 64 year old who presents for an annual gynecologic exam without complaints. Postmenopausal: Yes HRT use: No. Still get period: No LMP: 06/22/2015 Menopause symptoms: None Contraception: Post Menopausal and Tubal Ligation Contraception frequency: Always HPV vaccine: No Last pap smear: 06/05/2021 normal, HPV negative History of abnormal pap: No Bothersome pelvic pain: No Last mammogram: 05/2024 benign History of abnormal mammogram: Yes , hx of breast biopsy OB History Gravida3 Para3 Term3 Preterm0 AB0 Living3 SAB0 IAB0 Ectopic0 Multiple0 Live Births0 Comment: Menarche: 15; Age at 1st : 18; Post menopausal Core Sucker History LMP: 06/22/2015 (Within Days), Postmenopausal Age at Menarche: 16 Age at First : Age at Menopause: Core Sucker History Comments: Sexual Activity: Not Currently; Male Contraception: Tubal Ligation PAST MEDICAL HISTORY Diagnosis Date Anxiety, generalized Per patient Tobacco use disorder Age 34 PAST SURGICAL HISTORY Procedure Laterality Date APPENDECTOMY 1973 ARTHROSCOPY KNEE DIAGNOSTIC W/WO SYNOVIAL BX SPX 1994 Arthroscopy, knee Rt - torn meniscus BX BREAST PERC NEED W/GUID 04/20/13 U/S needle core right breast 9:30 plus 5 ENDOMETRIAL BX W/WO ENDOCERVIX BX W/O DILAT SPX 06/28/2010 Thickened Endometrium EXC BREAST LES PREOP PLMT RAD MARKER OPEN 1 LES 1-14-14 right FNA WITH IMAGING 05/18/13 U/S FNA 1 Oclock right breast cyst FNA WITH IMAGING Right 10/31/15 U/S FNA UOQ right x 3 FNA WITH IMAGING Right 04/27/2016 U/S FNA right breast cysts x 3 LIG/TRNSXJ FLP TUBE ABDL/VAG APPR UNI/BI 1987 Tubal ligation TONSILLECTOMY PRIMARY/SECONDARY <AGE 12 1968 Tonsillectomy FAMILY HISTORY Problem Relation Age of Onset Breast Cancer Mother 70 and 85 Stroke Mother Emphysema Father Colon Cancer Other none Diabetes Other none Coronary Artery Disease Other none SOCIAL HISTORY Social History Tobacco Use Smoking status: Every Day Current packs/day: 0.00 Average packs/day: 1 pack/day for 16.0 years (16.0 ttl pk-yrs) Types: Cigarettes Start date: 03/15/1996 Last attempt to quit: 03/15/2012 Years since quittin.8 Smokeless tobacco: Never Tobacco comments: Currently trying to quit, using chantix Vaping Use Vaping status: Never Used Substance Use Topics Alcohol use: Yes Alcohol/week: 15.0 - 20.0 standard drinks of alcohol Types: 15 - 20 Glasses of Wine (5oz) per week Drug use: Not Currently Types: Marijuana REVIEW OF SYSTEMS Abdomen: No abdominal pain, nausea, vomiting, diarrhea, or constipation. No bloating, early satiety, indigestion, or increased flatulence. Bladder: No dysuria, gross hematuria, urinary frequency, urinary urgency, or incontinence Breast: No breast lumps, nipple d/c, overlying skin changes, redness or skin retraction Allergies and current medication updated:Yes SENSITIVE EXAM: The sensitive examination was discussed with the Patient or Patient's Authorized Toe Stripper. As applicable, any other physician, advance practice provider, medical student, or other health professional student that will be observing or involved in the sensitive examination for educational or training purposes was discussed with the Patient or Authorized Toe Stripper. The Patient or Authorized Toe Stripper has agreed to proceed with the sensitive examination. (Sensitive examination includes inspection and/or palpation of the breasts, pelvis, prostate and anorectal regions). EXAM: BP 112/70 Ht 5' 4" (1.63m) Wt 153 lb (69.4kg) LMP 06/22/2015 BMI 26.25 kg/(m^2). GENERAL: pleasant, female in no apparent distress HEENT: Normocephalic, atraumatic, mucus membranes moist, and no lesions NECK: Supple, full range of motion, no adenopathy, and thyroid normal DERMATOLOGY: Normal, without lesions, non-icteric, and non-hirsute BREAST: soft, non-tender, symmetric, no dominant mass, normal nipple-areolar complex, no lymphadenopathy, and no nipple discharge CHEST: Normal inspiratory effort ABDOMEN: soft, non-tender, and no masses PELVIC: external genitalia atrophic, normal Bartholin's glands, urethra, [place]'s glands, no vulvar lesions, no cervical lesions, good vaginal support, physiologic discharge present, normal appearing perineal body and perianal region BIMANUAL: uterus normal size, shape and consistency, no adnexal masses, and non-tender RECTOVAGINAL: deferred. NEURO: alert and oriented x3,exam grossly non-focal EXTREMITIES: normal ASSESSMENT/PLAN: 1) Health maintenance: Pap/HPV up to date 2021. Due 2026. Mammogram up to date Nutrition, exercise and routine health maintenance exams reviewed. Calcium/Vitamin D supplementation information provided. Smoking cessation: Smoking cessation encouraged and resources provided. Colon cancer screening: up to date with screening TSH/lipids/glucose: followed by PCP BMD: ordered 2) Follow up one year or sooner as needed Dense breasts - ICD9: 793.82, ICD10: R92.30 - Reviewed supplemental screening options - Plans to check with insurance, would like ordered - Mother with breast cancer Dorothy Muhammad APRN.SUPERVISOR TYPE DISK QUALITY CONTROL documented in this encounter [facility] 10-13-2024 Note HNO ID: [id number] Author: ROBERT HAYS PA Service: ? Author Type: Physician Anesthesiology Faculty Type: Progress Notes Filed: 10/13/2024 15:43 Note Text: [facility] Subjective Heather Brooks is a 64 year old female. Patient presents with: Sinus Problem: Sinus pain and pressure, and ear pressure x 5 days HPI Sinus Infection: - Recurrent sinus infections, occurring 2-3 times per year. - Symptoms began approximately 6 days ago, following air travel and yard work. - Reports facial pressure, particularly around the eyes, described as "feeling like they're on fire." - Associated with rhinorrhea, initially presenting as congestion; has used two boxes of tissues. - Otalgia noted, with discomfort exacerbated by nose blowing. - Intermittent nocturnal cough attributed to postnasal drip. - Denies cephalgia. - Febrile episode on Saturday, but no subsequent fevers. - No known exposure to sick contacts. - Recent use of NyQuil for the past two nights and generic DayQuil today, with minimal relief. - Previous effective treatment with Augmentin; Z-Nicola noted to be ineffective in past episodes. Review of Systems Constitutional: (-) fever Head: (+) facial pressure, (-) headache Eyes: (+) ocular burning Ears/Nose/Mouth/Throat: (+) ear pain, (+) nasal congestion, (+) rhinorrhea Respiratory: (+) cough Objective BP 128/76 Pulse 76 Temp 36.3 ?C (97.4 ?F) (Tympanic) Resp 18 Wt 70.5 kg (155 lb 6.8 oz) LMP 06/22/2015 (Within Days) SpO2 98% BMI 27.44 kg/m? Physical Exam Vitals and nursing note reviewed. Constitutional: General: She is not in acute distress. Appearance: Normal appearance. She is not toxic-appearing. HENT: Right Ear: Tympanic membrane and ear canal normal. Left Ear: Tympanic membrane and ear canal normal. Nose: Congestion present. Right Sinus: Maxillary sinus tenderness present. Left Sinus: Maxillary sinus tenderness present. Mouth/Throat: Mouth: Mucous membranes are moist. Pharynx: No oropharyngeal exudate or posterior oropharyngeal erythema. Eyes: Conjunctiva/sclera: Conjunctivae normal. Cardiovascular: Rate and Rhythm: Normal rate and regular rhythm. Pulmonary: Effort: Pulmonary effort is normal. Breath sounds: Normal breath sounds. Neurological: Mental Status: She is alert. {1. Bacterial sinusitis (J32.9) - Symptoms include facial pressure, otalgia, and nasal congestion with significant rhinorrhea for 6 days; no headaches reported. - Physical exam reveals fluid behind the tympanic membranes, no signs of infection. - Initiated Augmentin BID for 7 days; prescription sent to [facility] pharmacy. - Advised continuation of NyQuil and Mucinex DM for symptomatic relief of cough. - Recommended Flonase nasal spray to alleviate nasal congestion. Recording using [employer] software for draft documentation of the visit was discussed with the patient/authorized passenger relations representative; all questions welcomed and answered. Patient/authorized passenger relations representative agreed to proceed History and Record Review External record(s) reviewed: prior outpatient record. Systemic symptoms present included: fever Differential Diagnoses - Sinusitis is more likely for the following reason(s): suggested by HANDP - Pneumonia is less likely for the following reason(s): HANDP not suggestive - Otitis media is less likely for the following reason(s): HANDP not suggestive Disposition The patient was discharged. OTC Medications were advised: Mucinex, Flonase Procedures [facility] 10-13-2024 History of Presen t illness Narrative [facility] Subjective Heatherkirstin Brooks is a 64 year old female. Patient presents with: Sinus Problem: Sinus pain and pressure, and ear pressure x 5 days HPI Sinus Infection: - Recurrent sinus infections, occurring 2-3 times per year. - Symptoms began approximately 6 days ago, following air travel and yard work. - Reports facial pressure, particularly around the eyes, described as "feeling like they're on fire." - Associated with rhinorrhea, initially presenting as congestion; has used two boxes of tissues. - Otalgia noted, with discomfort exacerbated by nose blowing. - Intermittent nocturnal cough attributed to postnasal drip. - Denies cephalgia. - Febrile episode on Saturday, but no subsequent fevers. - No known exposure to sick contacts. - Recent use of NyQuil for the past two nights and generic DayQuil today, with minimal relief. - Previous effective treatment with Augmentin; Z-Nicola noted to be ineffective in past episodes. Review of Systems Constitutional: (-) fever Head: (+) facial pressure, (-) headache Eyes: (+) ocular burning Ears/Nose/Mouth/Throat: (+) ear pain, (+) nasal congestion, (+) rhinorrhea Respiratory: (+) cough Objective BP 128/76 Pulse 76 Temp 36.3 C (97.4 F) (Tympanic) Resp 18 Wt 70.5 kg (155 lb 6.8 oz) LMP 06/22/2015 (Within Days) SpO2 98% BMI 27.44 kg/m Physical Exam Vitals and nursing note reviewed. Constitutional: General: She is not in acute distress. Appearance: Normal appearance. She is not toxic-appearing. HENT: Right Ear: Tympanic membrane and ear canal normal. Left Ear: Tympanic membrane and ear canal normal. Nose: Congestion present. Right Sinus: Maxillary sinus tenderness present. Left Sinus: Maxillary sinus tenderness present. Mouth/Throat: Mouth: Mucous membranes are moist. Pharynx: No oropharyngeal exudate or posterior oropharyngeal erythema. Eyes: Conjunctiva/sclera: Conjunctivae normal. Cardiovascular: Rate and Rhythm: Normal rate and regular rhythm. Pulmonary: Effort: Pulmonary effort is normal. Breath sounds: Normal breath sounds. Neurological: Mental Status: She is alert. {1. Bacterial sinusitis (J32.9) - Symptoms include facial pressure, otalgia, and nasal congestion with significant rhinorrhea for 6 days; no headaches reported. - Physical exam reveals fluid behind the tympanic membranes, no signs of infection. - Initiated Augmentin BID for 7 days; prescription sent to [facility] pharmacy. - Advised continuation of NyQuil and Mucinex DM for symptomatic relief of cough. - Recommended Flonase nasal spray to alleviate nasal congestion. Recording using [employer] software for draft documentation of the visit was discussed with the patient/authorized passenger relations representative; all questions welcomed and answered. Patient/authorized passenger relations representative agreed to proceed History and Record Review External record(s) reviewed: prior outpatient record. Systemic symptoms present included: fever Differential Diagnoses - Sinusitis is more likely for the following reason(s): suggested by H&P - Pneumonia is less likely for the following reason(s): H&P not suggestive - Otitis media is less likely for the following reason(s): H&P not suggestive Disposition The patient was discharged. OTC Medications were advised: Mucinex, Flonase Procedures documented in this encounter [facility] 06-01-2024 History of Presen t illness Narrative Radiology Service Progress Note PATIENT NAME: Heather Brooks DATE OF SERVICE: June 01, 2024 TIME: 7:47 AM PATIENT IDENTITY VERIFICATION COMPLETED USING TWO (2) IDENTIFIERS: Name and Date of confirmed by patient verbally. FALL SCREENING: Has the patient had 2 falls in the last year or 1 fall with injury or currently using an Ambulatory Assistive Device (Walker, Cane, Wheelchair, Crutches, etc.)? No PATIENT GENDER DATA: Assigned female at . status: : No status: NO. PATIENT RELEVANT IMPLANT DATA REVIEWED: Not Applicable PATIENT PRESENTS WITH AN IMPLANTABLE OR ATTACHED MEDICAL OFFICE TECHNICIAN: No RADIOLOGY DEPARTMENT: Mammography PERIPHERAL IV DATA: Not applicable SIGNED BY: Jennifer Lambert June 01, 2024 7:47 AM documented in this encounter [facility] 06-01-2024 Note HNO ID: [id number] Author: MAYNOR DIA Mammo Tech Service: ? Author Type: Senior Brand Manager Type: Progress Notes Filed: 06/01/2024 07:48 Note Text: Radiology Service Progress Note PATIENT NAME: Heather Brooks DATE OF SERVICE: June 01, 2024 TIME: 7:47 AM PATIENT IDENTITY VERIFICATION COMPLETED USING TWO (2) IDENTIFIERS: Name and Date of confirmed by patient verbally. FALL SCREENING: Has the patient had 2 falls in the last year or 1 fall with injury or currently using an Ambulatory Assistive Device (Walker, Cane, Wheelchair, Crutches, etc.)? No PATIENT GENDER DATA: Assigned female at . status: : No status: NO. PATIENT RELEVANT IMPLANT DATA REVIEWED: Not Applicable PATIENT PRESENTS WITH AN IMPLANTABLE OR ATTACHED MEDICAL OFFICE TECHNICIAN: No RADIOLOGY DEPARTMENT: Mammography PERIPHERAL IV DATA: Not applicable SIGNED BY: Maynor Dia [employer] June 01, 2024 7:47 AM [facility] 01-02-2024 Instructions Dorothy Muhammad APRN.[facility] 01/02/2024 8:29 AM EDT Calcium and Vitamin D Supplementation (from the National Institutes of Health Office of Dietary Supplements 2011) Calcium is required by the body for blood vessel, muscle, hormone and nerve functioning. Most of the body's calcium is stored in the bones and teeth where it supports structure and function. Bone is continuously broken down and reformed. When bone breakdown exceeds formation, especially in postmenopausal women, bone loss can increase the risk of osteoporosis and fractures. In addition to low calcium intake, women who smoke, have a family history of osteoporosis, are thin, or , or who take certain medications such as cancer chemotherapy, seizure mediations and steroids are at increased risk of osteoporosis. The calcium requirements in women change with age. The National Institutes of Health (NIH) recommends: 1000mg elemental calcium for premenopausal women age 19-50 1200mg elemental calcium for postmenopausal women and all women over 50 Milk, yogurt, and cheese are rich natural sources of calcium and are the major food contributors in the [place]. For example, 8oz of milk (whole, lowfat or skim) contains about 300mg calcium, 8oz of yogurt contains 415mg. Nondairy sources include salmon and sardines and vegetables, such as [place] cabbage, kale, and broccoli. Foods fortified with calcium include many fruit juices, tofu and cereals. For more food calcium content information, visit http://ods.od.nih.gov/factsheet s/calcium. Calcium supplements come in several different forms. Remember that the recommendations are for millgrams (mg) of elemental calcium which may be less than the total weight of the supplement. The amount of elemental calcium is required to be printed on the label. Calcium carbonate is the least expensive form. It must be taken on a full stomach to be properly absorbed. Some patients may experience gas or constipation. Calcium phosphate and calcium citrate may be taken either with or without food and tend to have less side effects but are generally more expensive. Because of its ability to neutralize stomach acid, calcium carbonate is found in some [id number] antacid products, such as Tums and Rolaids . Depending on its strength, each chewable pill or softchew provides 200 to 400 mg of elemental calcium. The percentage of calcium absorbed depends on the total amount of elemental calcium consumed at one time. Absorption is highest in doses <500mg. So a woman who takes 1,000mg/day of calcium from supplements should split the dose and take 500mg at two separate times during the day. Too much calcium can cause kidney stones, constipation, difficulty absorbing other nutrients and calcium buildup in blood vessels. Women under 50 should not exceed 2500mg/day (2000mg/day for women over 50) of calcium from food and supplements. Excessive alcohol and caffeine intake can inhibit absorption of calcium. Calcium can reduce the absorption of some medications if taken at the same time of day (bisphosphonates, thyroid medication, Phenytoin and other seizure medications, some antibiotics and iron supplements). Vitamin D promotes calcium absorption in the gut and maintains adequate blood levels of calcium and phosphate for normal bone growth and bone remodeling. Vitamin D also helps regulate cell growth as well as nerve, muscle and immune system function. Vitamin D is produced in the skin as a result of ultraviolet sunlight rays and must be altered in the liver and kidney to become its active form. Recommended intake according to the National Institutes of Health is 600 International Units (IU) for girls and women ages 1-70 and 800 IU for women over 70. Very few foods in nature contain vitamin D. The flesh of fatty fish (such as salmon, tuna, and mackerel) and fish liver oils are among the best sources. Small amounts of vitamin D are found in beef liver, cheese, mushrooms and egg yolks. Most people meet at least some of their vitamin D needs through exposure to sunlight. Season, time of day, length of day, cloud cover, smog, skin melanin content, and sunscreen are among the factors that affect UV radiation exposure and vitamin D synthesis. Despite the importance of the sun for vitamin D synthesis, it is prudent to limit exposure of skin to sunlight and avoid tanning beds. UV radiation is a carcinogen responsible for most of the estimated 1.5 million skin cancers that occur annually in the [place]. Lifetime cumulative UV damage to skin is also responsible for some age-associated dryness and other cosmetic changes. In supplements and fortified foods, vitamin D is available in two forms, D2 (ergocalciferol) and D3 (cholecalciferol). The two are equivalent at normal supplement doses. For women who require high supplement doses because of vitamin D deficiency, D3 may work better to raise blood levels. Some medications can prevent proper absorption of Vitamin D. These include laxatives, corticosteroids like prednisone, the seizure drugs phenobarbital and phenytoin, the weight-loss drug orlistat ( Xenical and AlliTM) and the cholesterol-lowering drug cholestyramine (Questran , LoCholest , and Prevalite ). Talk to your doctor about adjusting your recommended daily vitamin D dosage if you take these medications. You should not exceed 4000 mg of vitamin D supplementation daily unless specifically prescribed by your doctor. BONE MINERAL DENSITY PATIENT INSTRUCTIONS Bone mineral density testing measures the amount of calcium in certain parts of your bones. This information determines how strong your bones are. The test is used to detect osteoporosis, a disease in which the bone's mineral content and density are low, increasing a person's risk of fractures. The lumbar spine (lower back) and the hip are the skeletal sites usually examined. For the test, remember that: 1. You cannot take this test if you are . 2. Eat a normal diet on the day of the test. 3. Take your medications as you normally would. 4. DO NOT take calcium supplements (such as Tums) for 24 hours before the test. 5. On the day of the test, leave valuables (jewelry or credit cards) at home. 6. The test should be performed prior to oral, rectal or IV contrast studies, or at least 7 days after any of these studies. For the test, you may be asked to wear a hospital gown. You will lie on your back, on a padded table, in a comfortable position. Generally, you can resume your usual activities immediately. From [facility] [place]'s Tobacco Cessation website: Our comprehensive smoking cessation program contains three main modules. These modules include the following: One-on-one weekly 30-minute counseling sessions with a respiratory therapist. Education about the various nicotine replacement therapies and medications and alternative methods used for cessation. Guidance and support; plus, we will contact your physician to obtain any required prescriptions for medications related to cessation. Insurance is accepted for this six-week program. Please check with your provider about whether your plan covers tobacco cessation programs. In the event your insurance provider does not cover your six-week smoking cessation program, we encourage you to contact us at your earliest convenience by calling . One of our friendly team members will be happy to help you with your financial plan. Contact [phone] for more information. [place] Tobacco Program Visit [email or web address] or call 6-487-RBNP-NOW documented in this encounter [facility] 01-02-2024 History of Presen t illness Narrative Registry Nurse offered: Patient declines. Romero is a 63 year old who presents for an annual gynecologic exam without complaints. Postmenopausal: Yes since age 55 HRT use: No. Last Pap: 06/15/2021 normal HPV: 06/08/2021 negative History of abnormal pap: No Last mammogram: 2023 normal History of abnormal mammogram: Yes , benign Hot flashes: Yes Night sweats: No Vaginal dryness: No Exercise: very active OB History T3 L3 SAB0 IAB0 Ectopic0 Multiple0 Live Births0 Comment: Menarche: 15; Age at 1st : 18; Post menopausal Core Sucker History LMP: 06/22/2015 (Within Days), Postmenopausal Age at Menarche: Age at First : Age at Menopause: Core Sucker History Comments: Sexual Activity: Yes; Male Contraception: Tubal Ligation PAST MEDICAL HISTORY Age 34: Tobacco use disorderPAST SURGICAL HISTORY 1973: APPENDECTOMY 1994: ARTHROSCOPY KNEE DIAGNOSTIC W/WO SYNOVIAL BX SPX Comment: Arthroscopy, knee Rt - torn meniscus 04/20/13: BX BREAST PERC NEED W/GUID Comment: U/S needle core right breast 9:30 plus 5 06/28/2010: ENDOMETRIAL BX W/WO ENDOCERVIX BX W/O DILAT SPX Comment: Thickened Endometrium 05-19-14: EXC BREAST LES PREOP PLMT RAD MARKER OPEN 1 LES Comment: right 05/18/13: FNA WITH IMAGING Comment: U/S FNA 1 Oclock right breast cyst 10/31/15: FNA WITH IMAGING; Right Comment: U/S FNA UOQ right x 3 04/27/2016: FNA WITH IMAGING; Right Comment: U/S FNA right breast cysts x 3 1988: LIG/TRNSXJ FLP TUBE ABDL/VAG APPR UNI/BI Comment: Tubal ligation 1969: TONSILLECTOMY PRIMARY/SECONDARY <AGE 12 Comment: Tonsillectomy FAMILY HISTORY Problem Relation Age of Onset Breast Cancer Mother 70 and 85 Stroke Mother Emphysema Father Colon Cancer Other none Diabetes Other none Coronary Artery Disease Other none SOCIAL HISTORY Social History Tobacco Use Smoking status: Some Days Current packs/day: 0.00 Average packs/day: 1 pack/day for 16.0 years (16.0 ttl pk-yrs) Types: Cigarettes Start date: 03/15/1996 Last attempt to quit: 03/15/2012 Years since quittin.8 Smokeless tobacco: Never Tobacco comments: Currently trying to quit, using chantix Vaping Use Vaping status: Never Used Substance Use Topics Alcohol use: Yes Alcohol/week: 15.0 - 20.0 standard drinks of alcohol Types: 15 - 20 Glasses of Wine (5oz) per week Drug use: No REVIEW OF SYSTEMS Abdomen: No abdominal pain, nausea, vomiting, diarrhea, or constipation. No bloating, early satiety, indigestion, or increased flatulence. Bladder: No dysuria, gross hematuria, urinary frequency, urinary urgency, or incontinence Breast: No breast lumps, nipple d/c, overlying skin changes, redness or skin retraction Allergies and current medication updated:Yes EXAM: BP 128/74 Pulse 84 Resp 14 Ht 5' 3.11" (1.60m) Wt 145 lb (65.8kg) SpO2 95% LMP 06/22/2015 BMI 25.60 kg/(m^2). GENERAL: pleasant, female in no apparent distress HEENT: Normocephalic, atraumatic, mucus membranes moist, and no lesions NECK: Supple, full range of motion, no adenopathy, and thyroid normal DERMATOLOGY: Normal, without lesions, non-icteric, and non-hirsute BREAST: soft, non-tender, symmetric, no dominant mass, normal nipple-areolar complex, no lymphadenopathy, and no nipple discharge CHEST: Normal inspiratory effort ABDOMEN: soft, non-tender, and no masses PELVIC: external genitalia normal, normal Bartholin's glands, urethra, [place]'s glands, no vulvar lesions, no cervical lesions, good vaginal support, physiologic discharge present, normal appearing perineal body and perianal region BIMANUAL: uterus normal size, shape and consistency, no adnexal masses, and non-tender RECTOVAGINAL: deferred. NEURO: alert and oriented x3,exam grossly non-focal EXTREMITIES: normal ASSESSMENT/PLAN: 1) Health maintenance: Pap/HPV up to date 2021. Deferred until 2026. Mammogram ordered Mammogram up to date Nutrition, exercise and routine health maintenance exams reviewed. Calcium/Vitamin D supplementation information provided. Smoking cessation: Smoking cessation encouraged and resources provided. Colon cancer screening: up to date with screening TSH/lipids/glucose: followed by PCP BMD: ordered 2) Follow up one year or sooner as needed Dorothy Muhammad APRN.SUPERVISOR TYPE DISK QUALITY CONTROL documented in this encounter [facility] 09-28-2023 History of Presen t illness Narrative Subjective HPI HPI Heather Brooks is a 63 year old female who presents today for CC of cough, sinus pressure for 2 weeks central chest aching with turning of body and body position, started with cough. Has tried otc medication for relief. Symptoms are worsened by nothing. Risk factors smoker. Patient not known to [facility], denies renal hepatic disease. .Patient presents with: Cough: Sinus pain and pressure x2 weeks, center chest tightness from cough, also was lifting boxes PAST MEDICAL HISTORY Diagnosis Date Tobacco use disorder Age 34 PAST SURGICAL HISTORY Procedure Laterality Date APPENDECTOMY 1972 ARTHROSCOPY KNEE DIAGNOSTIC W/WO SYNOVIAL BX SPX 1994 Arthroscopy, knee Rt - torn meniscus BX BREAST PERC NEED W/GUID 04/20/13 U/S needle core right breast 9:30 plus 5 ENDOMETRIAL BX W/WO ENDOCERVIX BX W/O DILAT SPX 06/28/2010 Thickened Endometrium EXC BREAST LES PREOP PLMT RAD MARKER OPEN 1 LES 1-14-14 right FNA WITH IMAGING 05/18/13 U/S FNA 1 Oclock right breast cyst FNA WITH IMAGING Right 10/31/15 U/S FNA UOQ right x 3 FNA WITH IMAGING Right 04/27/2016 U/S FNA right breast cysts x 3 LIG/TRNSXJ FLP TUBE ABDL/VAG APPR UNI/BI 1987 Tubal ligation TONSILLECTOMY PRIMARY/SECONDARY <AGE 12 1969 Tonsillectomy ALLERGIES Patient has no known allergies. MEDICATIONS LORazepam (ATIVAN) 0.5 mg TAKE 1 (ONE) TABLET DAILY IF NEEDED FOR ANXIETY [id number]-CAPRYL ORAL Take by mouth. BEE POLLEN ORAL Take by mouth. Cholecalciferol, Vitamin D3, (VITAMIN D) 1,000 unit cap Take 1,000 Units by mouth once daily. amoxicillin-clavulanate potassium (AUGMENTIN) 875-125 mg per tablet Take 1 tablet by mouth two times a day for 7 days. predniSONE (DELTASONE) 20 mg tablet Take 2 tablets by mouth once daily for 5 days. FAMILY HISTORY Problem Relation Age of Onset Breast Cancer Mother 70 and 85 Stroke Mother Emphysema Father Colon Cancer Other none Diabetes Other none Coronary Artery Disease Other none Social History Tobacco Use Smoking status: Some Days Packs/day: 1.00 Years: 16.00 Additional pack years: 0.00 Total pack years: 16.00 Types: Cigarettes Last attempt to quit: 03/15/2012 Years since quittin.5 Smokeless tobacco: Never Tobacco comments: Currently trying to quit, using chantix Vaping Use Vaping Use: Never used Substance Use Topics Alcohol use: Yes Alcohol/week: 15.0 - 20.0 standard drinks of alcohol Types: 15 - 20 Glasses of Wine (5oz) per week Drug use: No Review of Systems Constitutional: Negative for fever. HENT: Positive for congestion, sinus pain and sore throat. Negative for ear pain and nosebleeds. Respiratory: Positive for cough and sputum production. Negative for shortness of breath and wheezing. Musculoskeletal: Negative for neck pain. Skin: Negative for itching and rash. Objective Blood pressure 129/75, pulse 87, temperature 36.6 C (97.8 F), resp. rate 18, weight 67 kg (147 lb 11.3 oz), last menstrual period 06/22/2015, SpO2 96%. Physical Exam Constitutional: General: She is not in acute distress. Appearance: She is not toxic-appearing or diaphoretic. HENT: Head: Normocephalic and atraumatic. Cardiovascular: Rate and Rhythm: Normal rate and regular rhythm. Heart sounds: Normal heart sounds, S1 normal and S2 normal. Pulmonary: Effort: Pulmonary effort is normal. Breath sounds: Normal breath sounds. Lymphadenopathy: Cervical: No cervical adenopathy. Right cervical: No superficial cervical adenopathy. Left cervical: No superficial cervical adenopathy. Neurological: Mental Status: She is alert and oriented to person, place, and time. Gait: Gait is intact. ASSESSMENT/PLAN: 1. Sinobronchitis - ICD9: 473.9, 490, ICD10: J32.9, J40 - Will begin treatment with as per antibiotic as written, see orders - Supportive care with plenty of fluids, rest, and analgesia prn. - Follow up in 3-5 days if symptoms persist or worsen. - AMOXICILLIN 875 MG-POTASSIUM CLAVULANATE 125 MG TABLET - PREDNISONE 20 MG TABLET Sajan Ruiz APRN.SUPERVISOR TYPE DISK QUALITY CONTROL documented in this encounter [facility] 12-05-2022 History of Presen t illness Narrative Heather is a 62 year old who presents for an annual gynecologic exam without complaints. Postmenopausal: yes HRT use: No. Last Pap: 06/15/2021 normal HPV: 06/08/2021 negative History of abnormal pap: No Last mammogram: 2022 normal History of abnormal mammogram: No OB History T3 L3 SAB0 IAB0 Ectopic0 Multiple0 Live Births0 Comment: Menarche: 15; Age at 1st : 18; Post menopausal Core Sucker History LMP: 06/22/2015 (Within Days), Postmenopausal Age at Menarche: Age at First : Age at Menopause: Core Sucker History Comments: Sexual Activity: Yes; Male Contraception: Tubal Ligation PAST MEDICAL HISTORY Diagnosis Date Tobacco use disorder Age 34 PAST SURGICAL HISTORY Procedure Laterality Date APPENDECTOMY 1973 ARTHROSCOPY KNEE DIAGNOSTIC W/WO SYNOVIAL BX SPX 1994 Arthroscopy, knee Rt - torn meniscus BX BREAST PERC NEED W/GUID 04/20/13 U/S needle core right breast 9:30 plus 5 ENDOMETRIAL BX W/WO ENDOCERVIX BX W/O DILAT SPX 06/28/2010 Thickened Endometrium EXC BREAST LES PREOP PLMT RAD MARKER OPEN 1 LES 05-19-13 right FNA WITH IMAGING 05/18/13 U/S FNA 1 Oclock right breast cyst FNA WITH IMAGING Right 10/31/15 U/S FNA UOQ right x 3 FNA WITH IMAGING Right 04/27/2016 U/S FNA right breast cysts x 3 LIG/TRNSXJ FLP TUBE ABDL/VAG APPR UNI/BI 1987 Tubal ligation TONSILLECTOMY PRIMARY/SECONDARY <AGE 12 1969 Tonsillectomy FAMILY HISTORY Problem Relation Age of Onset Breast Cancer Mother 70 and 85 Stroke Mother Emphysema Father Colon Cancer Other none Diabetes Other none Coronary Artery Disease Other none SOCIAL HISTORY Social History Tobacco Use Smoking status: Some Days Packs/day: 1.00 Years: 16.00 Total pack years: 16.00 Types: Cigarettes Last attempt to quit: 03/15/2012 Years since quittin.7 Smokeless tobacco: Never Tobacco comments: Currently trying to quit, using chantix Vaping Use Vaping Use: Never used Substance Use Topics Alcohol use: Yes Alcohol/week: 37.5 - 50.0 standard drinks of alcohol Types: 15 - 20 Glasses of Wine (5oz) per week Drug use: No REVIEW OF SYSTEMS Abdomen: No abdominal pain, nausea, vomiting, diarrhea, or constipation. No bloating, early satiety, indigestion, or increased flatulence. Bladder: No dysuria, gross hematuria, urinary frequency, urinary urgency, or incontinence Breast: No breast lumps, nipple d/c, overlying skin changes, redness or skin retraction Allergies and current medication updated:Yes EXAM: BP 122/76 Ht 5' 3.25" (1.61m) Wt 157 lb (71.2kg) LMP 06/22/2015 BMI 27.58 kg/(m^2). GENERAL: pleasant, female in no apparent distress HEENT: Normocephalic, atraumatic, mucus membranes moist, and no lesions NECK: Supple, full range of motion, no adenopathy, and thyroid normal DERMATOLOGY: Normal, without lesions, non-icteric, and non-hirsute BREAST: soft, non-tender, symmetric, no dominant mass, normal nipple-areolar complex, no lymphadenopathy, and no nipple discharge CHEST: Normal inspiratory effort ABDOMEN: soft, non-tender, and no masses PELVIC: external genitalia normal, normal Bartholin's glands, urethra, [place]'s glands, no vulvar lesions, no cervical lesions, good vaginal support, physiologic discharge present, normal appearing perineal body and perianal region BIMANUAL: uterus normal size, shape and consistency, no adnexal masses, and non-tender RECTOVAGINAL: deferred. NEURO: alert and oriented x3,exam grossly non-focal EXTREMITIES: normal ASSESSMENT/PLAN: 1) Health maintenance: Pap/HPV up to date. Mammogram ordered 2) Follow up one year or sooner as needed Sabine Alberto MD documented in this encounter [facility] 06-27-2022 History of Presen t illness Narrative Radiology Service Progress Note PATIENT NAME: Heather Brooks DATE OF SERVICE: June 27, 2022 TIME: 1:23 PM PATIENT IDENTITY VERIFICATION COMPLETED USING TWO (2) IDENTIFIERS: Name and Date of confirmed by patient verbally. FALL SCREENING: Has the patient had 2 falls in the last year or 1 fall with injury or currently using an Ambulatory Assistive Device (Walker, Cane, Wheelchair, Crutches, etc.)? No PATIENT GENDER DATA: Female. status: : No status: NO. PATIENT RELEVANT IMPLANT DATA REVIEWED: Not Applicable RADIOLOGY DEPARTMENT: Ultrasound PERIPHERAL IV DATA: Not applicable SIGNED BY: Heather Edmondson RDMS June 27, 2022 1:23 PM documented in this encounter [facility] 06-27-2022 History of Presen t illness Narrative Radiology Service Progress Note PATIENT NAME: Heather Brooks DATE OF SERVICE: June 27, 2022 TIME: 9:49 AM PATIENT IDENTITY VERIFICATION COMPLETED USING TWO (2) IDENTIFIERS: Name and Date of confirmed by patient verbally. FALL SCREENING: Has the patient had 2 falls in the last year or 1 fall with injury or currently using an Ambulatory Assistive Device (Walker, Cane, Wheelchair, Crutches, etc.)? No PATIENT GENDER DATA: Female. status: : No status: NO. PATIENT RELEVANT IMPLANT DATA REVIEWED: Not Applicable RADIOLOGY DEPARTMENT: Mammography PERIPHERAL IV DATA: Not applicable SIGNED BY: RT Raphael(R) June 27, 2022 9:49 AM documented in this encounter [facility] 05-28-2022 Miscellaneous Notes May 29, 2022 PID: [id number] Heather Brooks [address] [place] [address] Dear Ms. Brooks, Your recent breast imaging exam on 05/28/2022 showed a possible finding that requires additional imaging studies for a complete evaluation. Most such findings are probably benign (not cancer). Your mammogram demonstrates that you have dense breast tissue, which could hide abnormalities. Dense breast tissue, in and of itself, is a relatively common condition. Therefore, this information is not provided to cause undue concern; rather, it is to raise your awareness and promote discussion with your health care provider regarding the presence of dense breast tissue in addition to other risk factors. If you have a healthcare provider who ordered/prescribed your screening mammogram: Please call [phone] or [phone]: [phone] to schedule an appointment for your additional imaging (if you have not already done so). If you DO NOT have a healthcare provider (ie you did not have an order/prescription for your screening mammogram): Please call to schedule an appointment for your additional imaging (if you have not already done so). You must have an order/prescription from your physician when calling to schedule your appointment. If your order/prescription is not electronic, you must bring the hard copy with you on the day of your exam to avoid delays. Your imaging studies and reports are kept on file at [facility] as part of your permanent medical record, and are available for your continuing care. Thank you for allowing us to help in meeting your health care needs. Sincerely, Dr. Lei Interpreting Radiologist [facility] (Additional imaging) documented in this encounter [facility] 05-28-2022 History of Presen t illness Narrative Radiology Service Progress Note PATIENT NAME: Heather Brooks DATE OF SERVICE: May 28, 2022 TIME: 12:54 PM PATIENT IDENTITY VERIFICATION COMPLETED USING TWO (2) IDENTIFIERS: Name and Date of confirmed by patient verbally. FALL SCREENING: Has the patient had 2 falls in the last year or 1 fall with injury or currently using an Ambulatory Assistive Device (Walker, Cane, Wheelchair, Crutches, etc.)? No PATIENT GENDER DATA: Female. status: : No status: NO. PATIENT RELEVANT IMPLANT DATA REVIEWED: Not Applicable RADIOLOGY DEPARTMENT: Mammography PERIPHERAL IV DATA: Not applicable SIGNED BY: Adriane Nationo Herbert May 28, 2022 12:54 PM documented in this encounter [facility] 04-06-2022 Miscellaneous Notes Pt notified and will call back to schedule. Remedios Quinn LPN Order filed. Nora Argueta APRN.CNP Please review in RR absence. Remedios Quinn LPN Patient wanting Mamm with GINGER order. Order pending. documented in this encounter [facility] Evaluation note Diagnosis Encounter for screening mammogram for malignant neoplasm of breast- Primary Other screening mammogram [facility] [place] [facility] Diagnosis Abnormal mammogram- Primary Abnormal mammogram, unspecified [facility] encounter [facility]No [facility]WK[facility] Work Phone: Evaluation note* Diagnosis Encounter for gynecological examination (general) (routine) without abnormal findings- Primary Encounter for screening mammogram for breast cancer [facility] [place] [facility]* Diagnosis Abnormal mammogram Abnormal mammogram, unspecified documented in this encounter [facility] note* Diagnosis Encounter for screening mammogram for malignant neoplasm of breast Other screening mammogram documented in this encounter [facility] note* Diagnosis Abnormal mammogram Abnormal mammogram, unspecified documented in this encounter [facility] note* Diagnosis Sinobronchitis- Primary Unspecified sinusitis (chronic) [facility] Diagnosis Encounter for gynecological examination (general) (routine) without abnormal findings- Primary Dense breast tissue Encounter for screening for osteoporosis Special screening for osteoporosis Asymptomatic postmenopausal status [facility] [place] [facility]* Diagnosis Encounter for gynecological examination (general) (routine) without abnormal findings Dense breast tissue [facility] Diagnosis Bacterial sinusitis- Primary Unspecified sinusitis (chronic) [facility] Diagnosis Encounter for gynecological examination (general) (routine) without abnormal findings- Primary Encounter for screening mammogram for breast cancer Dense breasts Inconclusive mammogram Encounter for screening for osteoporosis Special screening for osteoporosis Asymptomatic postmenopausal status documented in this encounter [facility] for referral (narrative)* Diagnostic Procedure Only (Routine) - Authorized Specialty Diagnoses / Procedures Referred By Guera t Referred To Contact BR IMAGING Diagnoses Encounter for screening mammogram for malignant neoplasm of breast Procedures BRAD SCREENING W GINGER SCREENING DIGITAL BREAST TOMOSYNTHESIS BI SCREENING MAMMOGRAPHY BI 2-VIEW BREAST INC Nora Naik, THAI.SUPERVISOR TYPE DISK QUALITY CONTROL [address] [place] [address] [facility] [address] [place] [address] Referral ID Status Reason Start Date Expiration Date Visits Requested Visits Authorized [id number] Authorized Auto-Generat ed Referral 04/06/2022 05/05/2023 1 1 [facility] for referral (narrative)* Diagnostic Procedure Only (Routine) - Authorized Specialty Diagnoses / Procedures Referred By Panfiloac t Referred To Contact [facility] IMAG[facility] Diagnoses Abnormal mammogram Procedures US BREAST LTD LT US BREAST UNI REAL TIME WITH IMAGE LIMITED Sabine Alberto MD [facility] [place] [address] [facility] [address] [place] [address] Referral ID Status Reason Start Date Expiration Date Visits Requested Visits Authorized [id number] Authorized Auto-Generat ed Referral 05/28/2022 06/27/2023 1 1 * Diagnostic Procedure Only (Routine) - Authorized Specialty Diagnoses / Procedures Referred By Guera feng Referred To Contact [facility] IMAG[facility] Diagnoses Abnormal mammogram Procedures BRAD DIAGNOSTIC LT DIAGNOSTIC MAMMOGRAPHY COMPUTER-AIDED DETCJ UNI Sabine Alberto MD [facility] [place] [address] [facility] [address] [place] [phone] Referral ID Status Reason Start Date Expiration Date Visits Requested Visits Authorized [id number] Authorized Auto-Generat ed Referral 05/28/2022 06/27/2023 1 1 [facility] for referral (narrative)* Diagnostic Procedure Only (Routine) - Authorized Specialty Diagnoses / Procedures Referred By Guera feng Referred To Contact [facility] IMAGING Diagnoses Encounter for gynecological examination (general) (routine) without abnormal findings Encounter for screening mammogram for breast cancer Procedures BRAD SCREENING W GINGER SCREENING DIGITAL BREAST TOMOSYNTHESIS BI SCREENING MAMMOGRAPHY BI 2-VIEW BREAST INC CAD Sabine Alberto MD [address] [place] [place] [address] [facility] [address] [place] [address] Referral ID Status Reason Start Date Expiration Date Visits Requested Visits Authorized [id number] Authorized Auto-Generat ed Referral 12/05/2022 01/04/2024 1 1 [facility] for referral (narrative)* Diagnostic Procedure Only (Routine) - Closed Specialty Diagnoses / Procedures Referred By Guera t Referred To Contact [facility] IM[facility] Diagnoses Abnormal mammogram Procedures US BREAST LTD LT US BREAST UNI REAL TIME WITH IMAGE LIMITED Sabine Alberto MD [address] [place] [address] [facility] [address] [place] [address] Referral ID Status Reason Start Date Expiration Date V isits Requested Visits Authorized [id number] Closed Auto-Generate d Referral 05/28/2022 06/27/2023 1 1 [facility] for referral (narrative)* Diagnostic Procedure Only (Routine) - Closed Specialty Diagnoses / Procedures Referred By Guera t Referred To Contact [facility] IMAG[facility] Diagnoses Encounter for screening mammogram for malignant neoplasm of breast Procedures BRAD SCREENING W GINGER SCREENING DIGITAL BREAST TOMOSYNTHESIS BI SCREENING MAMMOGRAPHY BI 2-VIEW BREAST INC Nora Naik APRN.CNP [address] [place] [address] [facility] [address] [place] [address] Referral ID Status Reason Start Date Expiration Date V isits Requested Visits Authorized [id number] Closed Auto-Generate d Referral 04/06/2022 05/05/2023 1 1 [facility] for referral (narrative)* Diagnostic Procedure Only (Routine) - New Request Specialty Diagnoses / Procedures Referred By Guera t Referred To Contact XR IMAGING Diagnoses Encounter for screening for osteoporosis Asymptomatic postmenopausal status Procedures DXA-AXIAL SKELETON Dorothy Muhammad APRN.CNP [address] [place] [address] [place] [address] Referral ID Status Reason Start Date Expiration Date Visits Requested Visits Authorized [id number] New Request Auto-Generat ed Referral 01/02/2024 01/31/2025 1 1 * Diagnostic Procedure Only (Routine) - Authorized Specialty Diagnoses / Procedures Referred By Contac t Referred To Contact [facility] Diagnoses Encounter for gynecological examination (general) (routine) without abnormal findings Dense breast tissue Procedures BRAD SCREENING W GINGER SCREENING DIGITAL BREAST TOMOSYNTHESIS BI SCREENING MAMMOGRAPHY BI 2-VIEW BREAST INC CAD Dorothy Muhammad APRN.MARLENE [address] [place] [address] [facility] [address] [place] [address] Referral ID Status Reason Start Date Expiration Date Visits Requested Visits Authorized [id number] Authorized Auto-Generat ed Referral 01/02/2024 01/31/2025 1 1 [facility] for referral (narrative)* Diagnostic Procedure Only (Routine) - Closed Specialty Diagnoses / Procedures Referred By Contac t Referred To Contact [facility] IM[facility] Diagnoses Encounter for gynecological examination (general) (routine) without abnormal findings Dense breast tissue Procedures BRAD SCREENING W GINGER SCREENING DIGITAL BREAST TOMOSYNTHESIS BI SCREENING MAMMOGRAPHY BI 2-VIEW BREAST INC CAD Dorothy Muhammad APRN.SUPERVISOR TYPE DISK QUALITY CONTROL [address] [place] [address] [facility] [address] [place] [address] Referral ID Status Reason Start Date Expiration Date V isits Requested Visits Authorized [id number] Closed Auto-Generate d Referral 01/02/2024 01/31/2025 1 1 [facility] for referral (narrative)No reason for referral information availableWKet[facility] Work Phone: Reason for visit Narrative* Diagnostic Procedure Only (Routine) - Closed Specialty Diagnoses / Procedures Referred By Guera t Referred To Contact [facility] IM[facility] Diagnoses Encounter for screening mammogram for malignant neoplasm of breast Procedures BRAD SCREENING W GINGER SCREENING DIGITAL BREAST TOMOSYNTHESIS BI SCREENING MAMMOGRAPHY BI 2-VIEW BREAST INC CAD Nora Argueta, PHOTOGRAPHY MANAGER.SUPERVISOR TYPE DISK QUALITY CONTROL [address] [place] [address] [facility] [address] [place] [address] Referral ID Status Reason Start Date Expiration Date V isits Requested Visits Authorized [id number] Closed Auto-Generate d Referral 04/06/2022 05/05/2023 1 1 [facility] for visit Narrative* Diagnostic Procedure Only (Routine) - Closed Specialty Diagnoses / Procedures Referred By Guera t Referred To Contact [facility] Diagnoses Abnormal mammogram Procedures BRAD DIAGNOSTIC LT DIAGNOSTIC MAMMOGRAPHY COMPUTER-AIDED DETCJ UNI Sabine Alberto MD [address] [place] [address] [facility] [address] [place] [address] Referral ID Status Reason Start Date Expiration Date V isits Requested Visits Authorized [id number] Closed Auto-Generate d Referral 05/28/2022 06/27/2023 1 1 [facility] for visit Narrative* Diagnostic Procedure Only (Routine) - Closed Specialty Diagnoses / Procedures Referred By Guera t Referred To Contact [facility] Diagnoses Encounter for gynecological examination (general) (routine) without abnormal findings Dense breast tissue Procedures BRAD SCREENING W GINGER SCREENING DIGITAL BREAST TOMOSYNTHESIS BI SCREENING MAMMOGRAPHY BI 2-VIEW BREAST INC CAD Dorothy Muhammad, PHOTOGRAPHY MANAGER.SUPERVISOR TYPE DISK QUALITY CONTROL [address] [place] [address] [facility] [address] [place] [address] Referral ID Status Reason Start Date Expiration Date V isits Requested Visits Authorized [id number] Closed Auto-Generate d Referral 01/02/2024 01/31/2025 1 1 [facility] Summary Purpose Family History No Family History Records FoundNo Family History Records FoundNo Family History Records Found Advance Directives No Advanced Directives Records Found Advance Directive Response Recorded Date/ Time Advance Directives No May 14, 2013 11:17am Additional Source Comments INFORMATION SOURCE (unrecogn ized section and content) DATE CREATED AUTHOR 12/29/2017 [facility] DATE CREATED AUTHOR AUTHOR'S ORGANIZ ATION 07/31/2024 [facility] DATE CREATED AUTHOR AUTHOR'S ORGANIZ ATION 01/22/2025 [facility] Source Comments (unrecognize d section and content) In the event this informatio n is protected by the Federal Confidentiality of Alcohol and Drug Abuse Patient Records regulations: The Federal rules restrict any use of the information to criminally investigate or prosecute any alcohol or drug abuse patient.[facility] the event this information is protected by the Federal Confidentiality of Alcohol and Drug Abuse Patient Records regulations: The Federal rules restrict any use of the information to criminally investigate or prosecute any alcohol or drug abuse patient.[facility] the event this information is protected by the Federal Confidentiality of Alcohol and Drug Abuse Patient Records regulations: The Federal rules restrict any use of the information to criminally investigate or prosecute any alcohol or drug abuse patient.[facility] the event this information is protected by the Federal Confidentiality of Alcohol and Drug Abuse Patient Records regulations: The Federal rules restrict any use of the information to criminally investigate or prosecute any alcohol or drug abuse patient.[facility] the event this information is protected by the Federal Confidentiality of Alcohol and Drug Abuse Patient Records regulations: The Federal rules restrict any use of the information to criminally investigate or prosecute any alcohol or drug abuse patient.[facility] the event this information is protected by the Federal Confidentiality of Alcohol and Drug Abuse Patient Records regulations: The Federal rules restrict any use of the information to criminally investigate or prosecute any alcohol or drug abuse patient.[facility] the event this information is protected by the Federal Confidentiality of Alcohol and Drug Abuse Patient Records regulations: The Federal rules restrict any use of the information to criminally investigate or prosecute any alcohol or drug abuse patient.[facility] the event this information is protected by the Federal Confidentiality of Alcohol and Drug Abuse Patient Records regulations: The Federal rules restrict any use of the information to criminally investigate or prosecute any alcohol or drug abuse patient.[facility] the event this information is protected by the Federal Confidentiality of Alcohol and Drug Abuse Patient Records regulations: The Federal rules restrict any use of the information to criminally investigate or prosecute any alcohol or drug abuse patient.[facility] the event this information is protected by the Federal Confidentiality of Alcohol and Drug Abuse Patient Records regulations: The Federal rules restrict any use of the information to criminally investigate or prosecute any alcohol or drug abuse patient.[facility] the event this information is protected by the Federal Confidentiality of Alcohol and Drug Abuse Patient Records regulations: The Federal rules restrict any use of the information to criminally investigate or prosecute any alcohol or drug abuse patient.[facility] Center[facility] the event this information is protected by the Federal Confidentiality of Alcohol and Drug Abuse Patient Records regulations: The Federal rules restrict any use of the information to criminally investigate or prosecute any alcohol or drug abuse patient.[facility] Reason for Visit (unrecogniz ed section and content) Reason Comments Orders Reason Onset Date Comments Radiology Mammogram 05/28/2022 at [facility] Reason Comments Yearly Exam Reason Comments Radiology US Specialty Diagnoses / Procedures Referred By Contac t Referred To Contact [facility] IM[facility] Diagnoses Abnormal mammogram Procedures US BREAST LTD LT US BREAST UNI REAL TIME WITH IMAGE LIMITED Sabine Alberto MD [address] [place] [address] [facility] [address] [place] [address] Referral ID Status Reason Start Date Expiration Date V isits Requested Visits Authorized [id number] Closed Auto-Generate d Referral 05/28/2022 06/27/2023 1 1 Reason Comments Cough Sinus pain and press ure x2 weeks, center chest tightness from cough, also was lifting boxes Reason Comments [facility] Reason Comments Sinus Problem Sinus pain and press ure, and ear pressure x 5 days Reason Comments [facility] Care Teams (unrecognized sec tion and content) 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 Relationship Specialty Start Date End Date Cely López PCP - General Family Medicine 09/06/14 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 Relationship Specialty Start Date End Date Cely López PCP - General Family Medicine 09/06/14 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 Relationship Specialty Start Date End Date Cely López PCP - General Family Medicine 09/06/14 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 Relationship Specialty Start Date End Date Cely López PCP - General Family Medicine 09/06/14 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 Relationship Specialty Start Date End Date Cely López PCP - General Family Medicine 09/06/14 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 Cely López MD Family Provider Active Dr. Cely López MD Primary Care Provider Active Team Status: Inactive Member Role Status Dates Dr. Cely López MD Primary Care Provider Active Start: July 24, 2024 End: July 24, 2024 Dr. Cely López MD Attending Provider Active Start: July 24, 2024 End: July 24, 2024 Dr. 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 This clinical summary was aggregated from multiple sources. Caution should be exercised in using it in the provision of clinical care. This summary normalizes information from multiple sources, and as a consequence, information in this document may materially change the coding, format and clinical context of patient data. In addition, data may be omitted in some cases. CLINICAL DECISIONS SHOULD BE BASED ON THE PRIMARY CLINICAL RECORDS. [employer] provides no warranty or guarantee of the accuracy or completeness of information in this document.
== END | disposition home or self-care (01) ==
LOC: LABSPEC 15:08
PROVIDERS: PCP Family Medicine; Visit Provider Family Medicine
DX: R30.0 Dysuria (principal)
CPT/HCPCS: 87077; 87086; 87088; 87186

== ENCOUNTER → 2025-03-18 | Outpatient (CLI) | payer OTHER, SELFPAY ==
--- NOTE | 2025-03-18 09:35 | RAD_ITS ---
PROCEDURE: HIP, UNI W/ PELVIS 2-3 VIEWS 03/18/2025 REASON FOR EXAM: RIGHT HIP PAIN TECHNIQUE: Procedure Code: RAD Modality: DX Procedure: HIP, UNI W/ PELVIS 2-3 VIEWS Laterality: Right COMPARISON: None FINDINGS: Bones: There are no fractures or dislocations. Joints: SI joints are unremarkable. Pubic symphysis is unremarkable. Mild degenerative osteoarthritic changes are seen involving both hips. Soft tissues: No soft tissue swelling is noted. Other: Radiopaque clips are seen in the pelvis presumably representing fallopian tube clips. RAD/HIP, UNI W/ Pelvis 2-3 Views IMPRESSION: Mild degenerative osteoarthritic changes involving both hips. Reading Location: [id number]
== END | disposition home or self-care (01) ==
LOC: MTRAD 09:33
PROVIDERS: PCP Family Medicine; Referring Provider Family Medicine; Visit Provider Family Medicine
DX: M70.60 Trochanteric bursitis, unspecified hip (principal)
CPT/HCPCS: 73502